=== PATIENT | female | born 1935 | race Two or more races ===

== ENCOUNTER 2018-12-29 17:18 | Inpatient (IN) | payer MEDICARE, BC ==
[2018-12-29] MEDS ORDERED: ASPIRIN 81 MG TABLET, CHEWABLE PO ONE (17:51)
--- NOTE | 2018-12-29 18:01 | ER Document Report ---
ED Medical Screen (RME) - General Chief Complaint: Chest Pressure Stated Complaint: CHEST PAIN Time Seen by Provider: 12/29/18 17:51 Notes: Patient is an 83-year-old female presents to the emergency department for generalized chest pressure. States she has had this chest pressure intermittently for the last couple of weeks. States last 24 hours she is also noticed eyes intermittent respiratory distress. Patient is denying any history of atrial fibrillation or irregular heartbeat. Patient's denying history of hypertension, hyperlipidemia, use of blood thinners. GENERAL: Alert, interacts well. No acute distress. LUNGS: Clear to auscultation bilaterally, no wheezes, rales, or rhonchi. No respiratory distress. I have greeted and performed a rapid initial assessment of this patient. A comprehensive ED assessment and evaluation of the patient, analysis of test results and completion of the medical decision making process will be conducted by additional ED providers. This medical record was dictated with voice recognizing software. There may be grammatical, syntax errors that are unintended. TRAVEL OUTSIDE OF THE [place] IN LAST 30 DAYS: No - Related Data Allergies/Adverse Reactions: No Known Allergies Allergy (Unverified 12/29/18 17:19) Physical Exam - Vital signs Vitals: Temp Pulse Resp BP Pulse Ox 98 F 110 H 22 H 168/107 H 96 12/29/18 17:32 12/29/18 17:32 12/29/18 17:32 12/29/18 17:32 12/29/18 17:32 Course - Vital Signs Vital signs: Temp Pulse Resp BP Pulse Ox 98 F 110 H 22 H 168/107 H 96 12/29/18 17:32 12/29/18 17:32 12/29/18 17:32 12/29/18 17:32 12/29/18 17:32
[2018-12-29 18:22] LABS: ABSOLUTE EOSINOPHILS # (AUTO) 0.2 10^3/uL (0.0-0.6); ABSOLUTE LYMPHOCYTES (AUTO) 0.7 10^3/uL (0.5-4.7); ABSOLUTE MONOCYTES (AUTO) 0.4 10^3/uL (0.1-1.4); ABSOLUTE NEUT (AUTO) 3.6 10^3/uL (1.7-8.2); BASOPHILS % (AUTO) 0.8 % (0-2); EOSINOPHILS % (AUTO) 3.2 % (0-6); HEMOGLOBIN 12.2 g/dL (12.0-15.5); LYMPHOCYTES % (AUTO) 14.8 % (13-45); MEAN CORPUSCULAR HEMOGLOBIN 26.9 pg (27.0-33.4); MEAN CORPUSCULAR VOLUME 84 fl (80-97); MONOCYTES % (AUTO) 8.2 % (3-13); PLATELET COUNT 232 10^3/uL (150-450); RED BLOOD COUNT 4.52 10^6/uL (3.72-5.28); RED CELL DISTRIBUTION WIDTH 14.7 % (11.5-14.0); TOTAL CELLS COUNTED % (AUTO) 100 %
--- NOTE | 2018-12-29 18:30 | RADIOLOGY REPORT (SQ) ---
EXAM DESCRIPTION: CHEST SINGLE VIEW COMPLETED DATE/TIME: 12/29/2018 6:19 pm REASON FOR STUDY: CP COMPARISON: None. NUMBER OF VIEWS: One view. TECHNIQUE: Single frontal radiographic view of the chest acquired. LIMITATIONS: None. FINDINGS: LUNGS AND PLEURA: No opacities, masses or pneumothorax. No pleural effusion. MEDIASTINUM AND HILAR STRUCTURES: No masses. Contour normal. HEART AND VASCULAR STRUCTURES: Heart enlarged without failure. Normal vasculature. BONES: No acute findings. HARDWARE: None in the chest. OTHER: Large hiatal hernia. IMPRESSION: HEART ENLARGED WITHOUT FAILURE. NO OTHER SIGNIFICANT RADIOGRAPHIC FINDING IN THE CHEST. TECHNICAL DOCUMENTATION: JOB ID: [id number] [employer]- All Rights Reserved Reading location - IP/workstation name: [email or web address]
[2018-12-29 18:44] LABS: ALANINE AMINOTRANSFERASE 30 U/L (9-52); ALBUMIN 4.2 g/dL (3.5-5.0); ALKALINE PHOSPHATASE 72 U/L (38-126); ANION GAP 11 (5-19); ASPARTATE AMINO TRANSFERASE 41 U/L (14-36); BILIRUBIN,DIRECT 0.3 mg/dL (0.0-0.4); BILIRUBIN,TOTAL 0.5 mg/dL (0.2-1.3); BLOOD UREA NITROGEN 21 mg/dL (7-20); CALCIUM 9.5 mg/dL (8.4-10.2); CARBON DIOXIDE 26 mmol/L (22-30); CHLORIDE 102 mmol/L (98-107); CREATINE KINASE 75 U/L (30-135); GLUCOSE 93 mg/dL (75-110); POTASSIUM 4.3 mmol/L (3.6-5.0); SODIUM 139.3 mmol/L (137-145); TOTAL PROTEIN 7.3 g/dL (6.3-8.2)
[2018-12-29 18:55] LABS: CREATINE KINASE MB 1.91 ng/mL (<4.55); TROPONIN I < 0.012 ng/mL
[2018-12-29] MEDS ORDERED: DILTIAZEM HCL INJ 25 MG/5 ML VIAL IV ONE (19:07)
--- NOTE | 2018-12-29 19:07 | ER Document Report ---
ED General - General Chief Complaint: Chest Pressure Stated Complaint: CHEST PAIN Time Seen by Provider: 12/29/18 17:51 Mode of Arrival: Ambulatory Information source: Patient Notes: This is a 83-year-old female with no significant medical problems who presents to the emergency room with him to chest pressure for the last day. Currently, she is pain-free. TRAVEL OUTSIDE OF THE [place] IN LAST 30 DAYS: No - HPI Onset: This morning Onset/Duration: Intermittent Quality of pain: Other Severity: Mild Pain Level: 1 - Tightness Associated symptoms: Chest pain. denies: Fever, Headache, Shortness of breath Exacerbated by: Denies Relieved by: Denies Similar symptoms previously: No Recently seen / treated by doctor: No - Related Data Allergies/Adverse Reactions: No Known Allergies Allergy (Unverified 12/29/18 17:19) Past Medical History - General Information source: Patient - Social History Smoking Status: Never Smoker Cigarette use (# per day): No Chew tobacco use (# tins/day): No Frequency of alcohol use: None Drug Abuse: None Lives with: Family Family History: None Patient has suicidal ideation: No Patient has homicidal ideation: No - Medical History Medical History: Negative Renal/ Medical History: Denies: Hx Peritoneal Dialysis Past Surgical History: Reports: Hx Orthopedic Surgery Review of Systems - Review of Systems Constitutional: denies: Chills, Fever EENT: No symptoms reported Cardiovascular: See HPI Respiratory: No symptoms reported Gastrointestinal: No symptoms reported Genitourinary: No symptoms reported Female Genitourinary: No symptoms reported Musculoskeletal: No symptoms reported Skin: No symptoms reported Hematologic/Lymphatic: No symptoms reported Neurological/Psychological: No symptoms reported Physical Exam - Vital signs Vitals: Temp Pulse Resp BP Pulse Ox 98 F 110 H 22 H 168/107 H 96 12/29/18 17:32 12/29/18 17:32 12/29/18 17:32 12/29/18 17:32 12/29/18 17:32 Notes: Physical exam: GENERAL: Patient is alert and oriented x3, no acute distress. Blood pressure is 170/99, pulse 107, respiratory rate 22, O2 sat 100% HEAD: Atraumatic, normocephalic. EYES: Pupils equal round and reactive to light, extraocular movements intact, sclera anicteric, conjunctiva are normal. ENT: TMs normal, nares patent, oropharynx clear without exudates. Moist mucous membranes. NECK: Normal range of motion, supple without obvious mass or JVD. LUNGS: Breath sounds clear to auscultation bilaterally and equal. No wheezes rales or rhonchi. HEART: Irregularly irregular without murmurs, rubs or gallops. ABDOMEN: Soft, normoactive bowel sounds. No tenderness to palpation. No guarding, no rebound. No masses appreciated. EXTREMITIES: Normal range of motion, no pitting or edema. No clubbing or cyanosis. NEUROLOGICAL: Cranial nerves II through XII grossly intact. Normal speech, moving all extremities. PSYCH: Normal mood, normal affect. SKIN: Warm, Dry, normal turgor, no rashes or lesions noted. Course - Vital Signs Vital signs: Temp Pulse Resp BP Pulse Ox 97.8 F 90 18 150/88 H 97 12/30/18 00:09 12/30/18 02:00 12/30/18 00:09 12/30/18 00:09 12/30/18 00:09 - Laboratory Result Diagrams: 12/29/18 18:10 12/29/18 18:10 Laboratory results interpreted by me: 12/29/18 12/29/18 18:10 18:10 MCH 26.9 L RDW 14.7 H BUN 21 H Est GFR ( Amer) 53 L Est GFR (Non-Af Amer) 44 L AST 41 H - Diagnostic Test Radiology reviewed: Image reviewed, Reports reviewed - Cardiomegaly without failure - EKG Interpretation by Ks Rhythm: A.Fib - EKG shows atrial fibrillation with a ventricular rate of 108, nonspecific ST changes per Discharge - Discharge Clinical Impression: New onset atrial fibrillation with a rap, Chest pain Condition: Stable Disposition: ADMITTED INPATIENT Admitting Provider: Liam (Hospitalist) Unit Admitted: Telemetry
[2018-12-29] MEDS ORDERED: ENOXAPARIN SODIUM INJ 100 MG/1 ML DISP.SYRIN SUBCUT ONE (20:26)
[2018-12-29] MEDS ORDERED: DILTIAZEM HCL 60 MG TABLET PO ONE (20:26)
[2018-12-29] MEDS ORDERED: MAG HYDROX/AL HYDROX/SIMETH SUSP 30 ML UDCUP PO PRN (21:29)
[2018-12-29] MEDS ORDERED: MAGNESIUM HYDROXIDE SUSP 30 ML UDCUP PO PRN (21:29)
[2018-12-29 21:37] LABS: FREE T3 4.01 pg/mL (2.77-5.27); FREE T4 (FREE THYROXINE) 1.32 ng/dL (0.78-2.19)
[2018-12-29 21:51] LABS: THYROID STIMULATING HORMONE 2.42 uIU/mL (0.47-4.68)
--- NOTE | 2018-12-29 22:21 | EKG REPORT ---
SEVERITY:- ABNORMAL ECG - ATRIAL FIBRILLATION, V-RATE 83-135 LVH WITH SECONDARY REPOLARIZATION ABNORMALITY BORDERLINE PROLONGED QT INTERVAL : Confirmed by: Saad Haas MD 29-Dec-2018 22:20:15
[2018-12-29 22:59] LABS: CREATINE KINASE MB 1.62 ng/mL (<4.55)
[2018-12-29 23:03] LABS: TROPONIN I 0.015 ng/mL
[2018-12-30] MEDS: ACETAMINOPHEN 325 MG TABLET PO PRN ×4 (00:56→22:37)
[2018-12-30 04:13] LABS: ABSOLUTE EOSINOPHILS # (AUTO) 0.2 10^3/uL (0.0-0.6); ABSOLUTE LYMPHOCYTES (AUTO) 1.1 10^3/uL (0.5-4.7); ABSOLUTE MONOCYTES (AUTO) 0.4 10^3/uL (0.1-1.4); ABSOLUTE NEUT (AUTO) 3.8 10^3/uL (1.7-8.2); BASOPHILS % (AUTO) 0.7 % (0-2); EOSINOPHILS % (AUTO) 3.7 % (0-6); HEMATOCRIT 38.4 % (36.0-47.0); HEMOGLOBIN 12.4 g/dL (12.0-15.5); LYMPHOCYTES % (AUTO) 19.2 % (13-45); MEAN CORPUSCULAR HGB CONC 32.2 g/dL (32.0-36.0); MEAN CORPUSCULAR VOLUME 84 fl (80-97); MONOCYTES % (AUTO) 8.1 % (3-13); PLATELET COUNT 218 10^3/uL (150-450); RED BLOOD COUNT 4.58 10^6/uL (3.72-5.28); RED CELL DISTRIBUTION WIDTH 14.8 % (11.5-14.0); SEGMENTED NEUTROPHILS % (AUTO) 68.3 % (42-78); TOTAL CELLS COUNTED % (AUTO) 100 %; WHITE BLOOD COUNT 5.6 10^3/uL (4.0-10.5)
[2018-12-30 04:31] LABS: ANION GAP 10 (5-19); BLOOD UREA NITROGEN 18 mg/dL (7-20); CALCIUM 9.4 mg/dL (8.4-10.2); CARBON DIOXIDE 26 mmol/L (22-30); CHLORIDE 105 mmol/L (98-107); GLUCOSE 87 mg/dL (75-110); POTASSIUM 3.9 mmol/L (3.6-5.0); SODIUM 140.6 mmol/L (137-145)
[2018-12-30 04:42] LABS: CREATINE KINASE MB 1.79 ng/mL (<4.55); TROPONIN I 0.015 ng/mL
--- NOTE | 2018-12-30 06:02 | PDOC H&P ---
History of Present Illness Admission Date/PCP: 12/29/18 21:29 SHASTA METCALF MD Patient complains of: Palpitations History of Present Illness: FRANCIA BECK is a 83 year old female without significant past medical history who presents with 2 weeks of palpitations developing chest tightness over the last 8 hours prompting her to seek evaluation in the emergency room. She is found to be in A. fib with RVR, started on Cardizem, Lovenox and referred to the hospitalist for admission. Patient denies previous episode, new antibiotics, excessive alcohol, caffeine, [id number] medications. She otherwise feels well denying heat or cold intolerance or significant weight loss. Past Medical History Medical History: None Past Surgical History Past Surgical History: Reports: Orthopedic Surgery Social History Information Source: Patient, Emergency Med Personnel Lives with: Family Smoking Status: Never Smoker Frequency of Alcohol Use: None Hx Recreational Drug Use: No Drugs: None - Advance Directive Resuscitation Status: Full Code Family History Family History: Hypertension Parental Family History Reviewed: Yes Children Family History Reviewed: Yes Sibling(s) Family History Reviewed.: Yes Medication/Allergy Allergies/Adverse Reactions: No Known Allergies Allergy (Unverified 12/29/18 17:19) Review of Systems Constitutional: ABSENT: chills, fever(s), headache(s), weight gain, weight loss Eyes: ABSENT: visual disturbances Ears: ABSENT: hearing changes Cardiovascular: ABSENT: chest pain, dyspnea on exertion, edema, orthropnea, palpitations Respiratory: ABSENT: cough, hemoptysis Gastrointestinal: ABSENT: abdominal pain, constipation, diarrhea, hematemesis, hematochezia, nausea, vomiting Genitourinary: ABSENT: dysuria, hematuria Musculoskeletal: ABSENT: joint swelling Integumentary: ABSENT: rash, wounds Neurological: ABSENT: abnormal gait, abnormal speech, confusion, dizziness, focal weakness, syncope Psychiatric: ABSENT: anxiety, depression, homidical ideation, suicidal ideation Endocrine: ABSENT: cold intolerance, heat intolerance, polydipsia, polyuria Hematologic/Lymphatic: ABSENT: easy bleeding, easy bruising Physical Exam Vital Signs: Temp Pulse Resp BP Pulse Ox 97.4 F 54 L 17 143/85 H 99 12/30/18 04:00 12/30/18 04:00 12/30/18 04:00 12/30/18 04:00 12/30/18 04:00 Intake & Output 12/28/18 12/29/18 12/30/18 11:59 11:59 11:59 Weight 63.1 kg General appearance: PRESENT: no acute distress, well-developed, well-nourished Head exam: PRESENT: atraumatic, normocephalic Eye exam: PRESENT: conjunctiva pink, EOMI, PERRLA. ABSENT: scleral icterus Ear exam: PRESENT: normal external ear exam Mouth exam: PRESENT: moist, tongue midline Neck exam: ABSENT: carotid bruit, JVD, lymphadenopathy, thyromegaly Respiratory exam: PRESENT: clear to auscultation edel. ABSENT: rales, rhonchi, wheezes Cardiovascular exam: PRESENT: irregular rhythm, tachycardia. ABSENT: diastolic murmur, rubs, systolic murmur Pulses: PRESENT: normal dorsalis pedis pul Vascular exam: PRESENT: normal capillary refill GI/Abdominal exam: PRESENT: normal bowel sounds, soft. ABSENT: distended, gu arding, mass, organolmegaly, rebound, tenderness Rectal exam: PRESENT: deferred Extremities exam: PRESENT: full ROM. ABSENT: calf tenderness, clubbing, pedal edema Neurological exam: PRESENT: alert, awake, oriented to person, oriented to place, oriented to time, oriented to situation, CN II-XII grossly intact. ABSENT: mot or sensory deficit Psychiatric exam: PRESENT: appropriate affect, normal mood. ABSENT: homicidal ideation, suicidal ideation Skin exam: PRESENT: dry, intact, warm. ABSENT: cyanosis, rash Results Laboratory Results: 12/30/18 03:50 12/30/18 03:50 12/29/18 12/29/18 12/29/18 18:10 18:10 18:10 WBC 5.0 RBC 4.52 Hgb 12.2 Hct 38.0 MCV 84 MCH 26.9 L MCHC 32.0 RDW 14.7 H Plt Count 232 Seg Neutrophils % 73.0 Lymphocytes % 14.8 Monocytes % 8.2 Eosinophils % 3.2 Basophils % 0.8 Absolute Neutrophils 3.6 Absolute Lymphocytes 0.7 Absolute Monocytes 0.4 Absolute Eosinophils 0.2 Absolute Basophils 0.0 Sodium 139.3 Potassium 4.3 Chloride 102 Carbon Dioxide 26 Anion Gap 11 BUN 21 H Creatinine 1.17 Est GFR ( Amer) 53 L Est GFR (Non-Af Amer) 44 L Glucose 93 Calcium 9.5 Total Bilirubin 0.5 AST 41 H ALT 30 Alkaline Phosphatase 72 Total Protein 7.3 Albumin 4.2 TSH 2.42 Free T4 1.32 Free T3 pg/mL 4.01 12/30/18 12/30/18 03:50 03:50 WBC 5.6 RBC 4.58 Hgb 12.4 Hct 38.4 MCV 84 MCH 27.0 MCHC 32.2 RDW 14.8 H Plt Count 218 Seg Neutrophils % 68.3 Lymphocytes % 19.2 Monocytes % 8.1 Eosinophils % 3.7 Basophils % 0.7 Absolute Neutrophils 3.8 Absolute Lymphocytes 1.1 Absolute Monocytes 0.4 Absolute Eosinophils 0.2 Absolute Basophils 0.0 Sodium 140.6 Potassium 3.9 Chloride 105 Carbon Dioxide 26 Anion Gap 10 BUN 18 Creatinine 0.99 Est GFR ( Amer) > 60 Est GFR (Non-Af Amer) 53 L Glucose 87 Calcium 9.4 Total Bilirubin AST ALT Alkaline Phosphatase Total Protein Albumin TSH Free T4 Free T3 pg/mL 12/29/18 12/29/18 12/29/18 18:10 18:10 22:00 Creatine Kinase 75 CK-MB (CK-2) 1.91 1.62 Troponin I < 0.012 0.015 12/29/18 12/30/18 12/30/18 22:00 03:50 03:50 Creatine Kinase 61 61 CK-MB (CK-2) 1.79 Troponin I 0.015 Impressions: Chest X-Ray 12/29/18 17:52 IMPRESSION: HEART ENLARGED WITHOUT FAILURE. NO OTHER SIGNIFICANT RADIOGRAPHIC FINDING IN THE CHEST. Assessment and Plan - Diagnosis (1) Atrial fibrillation with RVR Is this a current diagnosis for this admission?: Yes Plan: No apparent underlying cause, continue Cardizem, full dose Lovenox, follow-up 2D echo (2) Chest pain Is this a current diagnosis for this admission?: Yes Plan: Likely secondary to #1,, symptomatic management and consider stress test. - Time Time Spent with patient: 35 or more minutes - Inpatient Certification Medical Necessity: Need Close Monitoring Due to Risk of Patient Decompensation
[2018-12-30] MEDS: DILTIAZEM HCL 60 MG TABLET PO SCH ×2 (06:15→15:05)
[2018-12-30] MEDS: ASPIRIN 81 MG TABLET, CHEWABLE PO SCH (09:15)
[2018-12-30] MEDS ORDERED: ENOXAPARIN SODIUM INJ 80 MG/0.8 ML DISP.SYRIN SUBCUT SCH (10:00)
[2018-12-30 10:40] LABS: CREATINE KINASE MB 1.77 ng/mL (<4.55)
[2018-12-30 10:48] LABS: TROPONIN I < 0.012 ng/mL
[2018-12-30] MEDS ORDERED: TIZANIDINE HCL 4 MG TABLET PO ONE (12:30)
--- NOTE | 2018-12-30 13:29 | XCELERA REPORT ---
[address] [address] Transthoracic Echocardiogram Report Name: FRANCIA BECK Age: 83 yrs Gender: Female : 1935 Patient Status: Inpatient Patient Location: [facility] Study Date: 12/30/2018 11:02 AM Height: 66 in Weight: 134 lb BSA: 1.7 m2 Procedure: A two-dimensional transthoracic echocardiogram with color flow and Doppler was performed. The study was technically limited with all images being suboptimal in quality. Reason For Study: new afib History: ATRIAL FIBRILLATION. Ordering Physician: SHIVA ARANDA Performed By: Isaiah Hooker Interpretation Summary The left ventricle is normal in size. Cannot exclude mild global hypokinesis.LVEF is mildly reduced at 50%. LV EF is 50% LV diastolic function could not be adequately assessed due to atrial fibrilation. There is no thrombus. Moost likely no ASD ,VSD , or PFO. The right ventricle is grossly normal size. The right atrium is mild to moderately dilated. Left Atrium is moderately to severly dilated. There is mild mitral annular calcification. There is no evidence of mitral valve prolapse. There is no vegetation seen on the mitral valve. There is a moderate to severe amount of mitral regurgitation There is no aortic valvular vegetation. There is aortic sclerosis without aortic stenosis. There is no LVOT obstruction. There is a trace amount of aortic regurgitation There is no tricuspid stenosis. No significant pulmonary hypertension.RVSP is 27 to 32 mm of Hg , with RA mean of 5 to 10.Suspect there is underestimation OF Tricuspid jet velocity , and hence RVSP. There is a mild to moderate amount of tricuspid regurgitation The pulmonic valve is not well visualized. The aortic root is not well visualized but is probably normal size. The inferior vena cava appeared normal and decreased > 50% with respiration (RAP 5-10 mmHg) There is no pericardial effusion. MMode/2D Measurements & Calculations RVDd: 2.1 cm LVIDd: 4.5 cm FS: 22.3 % Ao root diam: 3.3 cm IVSd: 1.1 cm LVIDs: 3.5 cm EDV(Teich): 92.5 ml Ao root area: 8.3 cm2 LVPWd: 0.95 cm ESV(Teich): 50.8 ml LA dimension: 3.6 cm EF(Teich): 45.1 % LVOT diam: 2.1 cm LVOT area: 3.6 cm2 Doppler Measurements & Calculations MV E max al: MV P1/2t max al: Ao V2 max: LV V1 max P.3 cm/sec 165.2 cm/sec 118.7 cm/sec 2.5 mmHg MV A max al: MV P1/2t: 66.4 msec Ao max P.6 mmHgLV V1 max: 39.8 cm/sec MVA(P1/2t): 3.3 cm2 MICHAEL(V,D): 2.4 cm2 79.1 cm/sec MV E/A: 3.9 MV dec slope: 729.1 cm/sec2 MV dec time: 0.19 sec MR max al: PA V2 max: PI end-d al: TR max al: 565.8 cm/sec 74.7 cm/sec 107.2 cm/sec 232.1 cm/sec MR max PG: PA max P.2 mmHg TR max P.1 mmHg 21.6 mmHg MV P1/2t-pr_phl: 66.4 msec Left Ventricle The left ventricle is normal in size. There is normal left ventricular wall thickness. LV EF is 50%. Cannot exclude mild global hypokinesis.LVEF is mildly reduced at 50%. LV diastolic function could not be adequately assessed due to atrial fibrilation. There is no thrombus. Moost likely no ASD ,VSD , or PFO. Right Ventricle The right ventricle is grossly normal size. The right ventricle is not well visualized secondary to technical limitations. Atria The right atrium is mild to moderately dilated. Left Atrium is moderately to severly dilated. Mitral Valve There is mild mitral annular calcification. There is mild mitral leaflet calcification. There is no evidence of mitral valve prolapse. There is no vegetation seen on the mitral valve. There is no mitral valve stenosis. There is a moderate to severe amount of mitral regurgitation. Aortic Valve There is no aortic valvular vegetation. There is aortic sclerosis without aortic stenosis. There is no LVOT obstruction. There is a trace amount of aortic regurgitation. Tricuspid Valve There is no tricuspid stenosis. No significant pulmonary hypertension.RVSP is 27 to 32 mm of Hg , with RA mean of 5 to 10.Suspect there is underestimation OF Tricuspid jet velocity , and hence RVSP. There is a mild to moderate amount of tricuspid regurgitation. Pulmonic Valve The pulmonic valve is not well visualized. Great Vessels The aortic root is not well visualized but is probably normal size. The inferior vena cava appeared normal and decreased > 50% with respiration (RAP 5-10 mmHg). Effusions There is no pericardial effusion. : SHIVA ARANDA > Janelle Gunderson
--- NOTE | 2018-12-30 16:14 | PDOC PROGRESS REPORT ---
Subjective Progress Note for:: 12/30/18 Subjective:: FRANCIA BECK is a 83 year old female without significant past medical history who presents with 2 weeks of palpitations developing chest tightness over the last 8 hours prompting her to seek evaluation in the emergency room. She is found to be in A. fib with RVR, started on Cardizem, Lovenox and referred to the hospitalist for admission. Patient denies previous episode, new antibiotics, excessive alcohol, caffeine, [id number] medications. She otherwise feels well denying heat or cold intolerance or significant weight loss. Reason For Visit: NEW AFIB, CHEST PAIN Physical Exam Vital Signs: Temp Pulse Resp BP Pulse Ox 97.7 F 71 17 159/86 H 96 12/30/18 12:23 12/30/18 14:00 12/30/18 12:23 12/30/18 12:23 12/30/18 12:23 Intake & Output 12/29/18 12/30/18 12/31/18 06:59 06:59 06:59 Output Total 800 Balance -800 Weight 63.1 kg General appearance: PRESENT: no acute distress, well-developed, well-nourished Head exam: PRESENT: atraumatic, normocephalic Eye exam: PRESENT: conjunctiva pink, EOMI, PERRLA. ABSENT: scleral icterus Ear exam: PRESENT: normal external ear exam Mouth exam: PRESENT: moist, tongue midline Neck exam: ABSENT: carotid bruit, JVD, lymphadenopathy, thyromegaly Respiratory exam: PRESENT: clear to auscultation edel. ABSENT: rales, rhonchi, wheezes Cardiovascular exam: PRESENT: RRR. ABSENT: diastolic murmur, rubs, systolic murmur Pulses: PRESENT: normal dorsalis pedis pul Vascular exam: PRESENT: normal capillary refill GI/Abdominal exam: PRESENT: normal bowel sounds, soft. ABSENT: distended, guarding, mass, organolmegaly, rebound, tenderness Rectal exam: PRESENT: deferred Extremities exam: PRESENT: full ROM. ABSENT: calf tenderness, clubbing, pedal edema Neurological exam: PRESENT: alert, awake, oriented to person, oriented to place, oriented to time, oriented to situation, CN II-XII grossly intact. ABSENT: motor sensory deficit Psychiatric exam: PRESENT: appropriate affect, normal mood. ABSENT: homicidal ideation, suicidal ideation Skin exam: PRESENT: dry, intact, warm. ABSENT: cyanosis, rash Results Laboratory Results: 12/30/18 03:50 12/30/18 03:50 12/29/18 12/29/18 12/29/18 18:10 18:10 18:10 WBC 5.0 RBC 4.52 Hgb 12.2 Hct 38.0 MCV 84 MCH 26.9 L MCHC 32.0 RDW 14.7 H Plt Count 232 Seg Neutrophils % 73.0 Lymphocytes % 14.8 Monocytes % 8.2 Eosinophils % 3.2 Basophils % 0.8 Absolute Neutrophils 3.6 Absolute Lymphocytes 0.7 Absolute Monocytes 0.4 Absolute Eosinophils 0.2 Absolute Basophils 0.0 Sodium 139.3 Potassium 4.3 Chloride 102 Carbon Dioxide 26 Anion Gap 11 BUN 21 H Creatinine 1.17 Est GFR ( Amer) 53 L Est GFR (Non-Af Amer) 44 L Glucose 93 Calcium 9.5 Total Bilirubin 0.5 AST 41 H ALT 30 Alkaline Phosphatase 72 Total Protein 7.3 Albumin 4.2 TSH 2.42 Free T4 1.32 Free T3 pg/mL 4.01 12/30/18 12/30/18 03:50 03:50 WBC 5.6 RBC 4.58 Hgb 12.4 Hct 38.4 MCV 84 MCH 27.0 MCHC 32.2 RDW 14.8 H Plt Count 218 Seg Neutrophils % 68.3 Lymphocytes % 19.2 Monocytes % 8.1 Eosinophils % 3.7 Basophils % 0.7 Absolute Neutrophils 3.8 Absolute Lymphocytes 1.1 Absolute Monocytes 0.4 Absolute Eosinophils 0.2 Absolute Basophils 0.0 Sodium 140.6 Potassium 3.9 Chloride 105 Carbon Dioxide 26 Anion Gap 10 BUN 18 Creatinine 0.99 Est GFR ( Amer) > 60 Est GFR (Non-Af Amer) 53 L Glucose 87 Calcium 9.4 Total Bilirubin AST ALT Alkaline Phosphatase Total Protein Albumin TSH Free T4 Free T3 pg/mL 12/29/18 12/29/18 12/29/18 18:10 18:10 22:00 Creatine Kinase 75 CK-MB (CK-2) 1.91 1.62 Troponin I < 0.012 0.015 12/29/18 12/30/18 12/30/18 22:00 03:50 03:50 Creatine Kinase 61 61 CK-MB (CK-2) 1.79 Troponin I 0.015 12/30/18 12/30/18 09:57 09:57 Creatine Kinase 59 CK-MB (CK-2) 1.77 Troponin I < 0.012 Impressions: Chest X-Ray 12/29/18 17:52 IMPRESSION: HEART ENLARGED WITHOUT FAILURE. NO OTHER SIGNIFICANT RADIOGRAPHIC FINDING IN THE CHEST. Assessment and Plan - Diagnosis (1) Atrial fibrillation with RVR Is this a current diagnosis for this admission?: Yes Plan: New onset. Rate controlled. CHADs Score 6. Based on gender, age and htn. Initially started on Cardizem p.o. then switched to beta-blockers as per cardiology recommendations. Discharged on metoprolol and Eliquis. Follow-up with Dr. Gunderson as outpatient possible stress test. Had a lengthy discussion about pros and cons of chronic anticoagulation. Pref ers to be started on started on NOACs rather than Coumadin. Pending 2D echo. (2) Chest pain Is this a current diagnosis for this admission?: Yes Plan: Resolved. Likely triggered by A. fib RVR. Troponins 0.0130.012. Continue aspirin, beta-blockers, ARB. A1c and lipid panel WNL. (3) Hypertension Is this a current diagnosis for this admission?: No Plan: Euvolemic. Not controlled. Continue beta-blockers. Add lisinopril. Follow-up with PCP Dr. Gunedrson for dose adjustment.
[2018-12-30] MEDS: APIXABAN 5 MG TABLET PO SCH (17:34)
[2018-12-30] MEDS: HYDRALAZINE HCL INJ/PF 20 MG/1 ML SDV IV PRN (18:12)
[2018-12-30] MEDS: METOPROLOL TARTRATE 50 MG TABLET PO SCH (21:09)
[2018-12-30] MEDS ORDERED: LOSARTAN POTASSIUM 25 MG TABLET PO SCH (22:00)
[2018-12-31 04:23] LABS: ABSOLUTE EOSINOPHILS # (AUTO) 0.2 10^3/uL (0.0-0.6); ABSOLUTE LYMPHOCYTES (AUTO) 0.6 10^3/uL (0.5-4.7); ABSOLUTE MONOCYTES (AUTO) 0.4 10^3/uL (0.1-1.4); ABSOLUTE NEUT (AUTO) 3.2 10^3/uL (1.7-8.2); BASOPHILS % (AUTO) 0.8 % (0-2); EOSINOPHILS % (AUTO) 3.6 % (0-6); HEMATOCRIT 40.5 % (36.0-47.0); HEMOGLOBIN 13.1 g/dL (12.0-15.5); LYMPHOCYTES % (AUTO) 14.1 % (13-45); MEAN CORPUSCULAR HEMOGLOBIN 27.2 pg (27.0-33.4); MEAN CORPUSCULAR HGB CONC 32.4 g/dL (32.0-36.0); MEAN CORPUSCULAR VOLUME 84 fl (80-97); MONOCYTES % (AUTO) 8.8 % (3-13); PLATELET COUNT 229 10^3/uL (150-450); RED BLOOD COUNT 4.82 10^6/uL (3.72-5.28); RED CELL DISTRIBUTION WIDTH 14.8 % (11.5-14.0); SEGMENTED NEUTROPHILS % (AUTO) 72.7 % (42-78); TOTAL CELLS COUNTED % (AUTO) 100 %; WHITE BLOOD COUNT 4.4 10^3/uL (4.0-10.5)
[2018-12-31 04:34] LABS: ANION GAP 11 (5-19); BLOOD UREA NITROGEN 16 mg/dL (7-20); CALCIUM 9.9 mg/dL (8.4-10.2); CARBON DIOXIDE 25 mmol/L (22-30); CHLORIDE 103 mmol/L (98-107); CHOLESTEROL 158.91 mg/dL (0-200); GLUCOSE 93 mg/dL (75-110); SODIUM 139.2 mmol/L (137-145); TRIGLYCERIDES 105 mg/dL (<150)
[2018-12-31 04:45] LABS: DIRECT LDL 85 mg/dL (<100)
[2018-12-31] MEDS: HYDRALAZINE HCL INJ/PF 20 MG/1 ML SDV IV PRN (05:41)
[2018-12-31] MEDS: APIXABAN 5 MG TABLET PO SCH (09:24)
[2018-12-31] MEDS: METOPROLOL TARTRATE 50 MG TABLET PO SCH (09:24)
[2018-12-31] MEDS: ASPIRIN 81 MG TABLET, CHEWABLE PO SCH (09:26)
[2018-12-31] MEDS: ACETAMINOPHEN 325 MG TABLET PO PRN (09:31)
[2018-12-31] MEDS ORDERED: LOSARTAN POTASSIUM 25 MG TABLET PO SCH (10:00)
[2018-12-31] MEDS ORDERED: TIZANIDINE HCL 4 MG TABLET PO PRN (12:44)
[2018-12-31 15:20] VITALS: BP 134/64
--- NOTE | 2018-12-31 17:08 | EKG REPORT ---
SEVERITY:- ABNORMAL ECG - ATRIAL FIBRILLATION, V-RATE 58-91 ATRIAL BEAT WITH ABERRENCY LVH WITH SECONDARY REPOLARIZATION ABNORMALITY : Confirmed by: Saad Haas MD 31-Dec-2018 17:06:57
--- NOTE | 2019-01-02 14:59 | PDOC DISCHARGE SUMMARY ---
General - Admit/Disc Date/PCP Admission Date/Primary Care Provider: 12/29/18 21:29 SHASTA METCALF MD Discharge Date: 12/31/18 - Discharge Diagnosis (1) Atrial fibrillation with RVR Is this a current diagnosis for this admission?: Yes (2) Chest pain Is this a current diagnosis for this admission?: Yes (3) Hypertension Is this a current diagnosis for this admission?: No - Additional Information Resuscitation Status: Full Code Discharge Diet: Cardiac Discharge Activity: Activity As Tolerated Prescriptions: Apixaban [Eliquis 5 mg Tablet] 5 mg PO BID 30 Days #60 tablet Losartan Potassium [Cozaar 25 mg Tablet] 25 mg PO BID 30 Days #60 tablet Metoprolol Tartrate [Lopressor 50 mg Tablet] 50 mg PO Q12 30 Days #30 tablet Tizanidine HCl 2 mg PO Q8 3 Days #9 tablet Home Medications: Acetaminophen [Tylenol Arthritis] 650 mg PO DAILY 12/30/18 Aspirin [Adult Low Dose Aspirin EC] 81 mg PO DAILY 12/30/18 Apixaban [Eliquis 5 mg Tablet] 5 mg PO BID 30 Days #60 tablet 12/31/18 Losartan Potassium [Cozaar 25 mg Tablet] 25 mg PO BID 30 Days #60 tablet 12/31/18 Metoprolol Tartrate [Lopressor 50 mg Tablet] 50 mg PO Q12 30 Days #30 tablet 12/31/18 Tizanidine HCl 2 mg PO Q8 3 Days #9 tablet 12/31/18 History of Present Illness History of Present Illness: FRANCIA BECK is a 83 year old female without significant past medical history who presents with 2 weeks of palpitations developing chest tightness over the last 8 hours prompting her to seek evaluation in the emergency room. She is found to be in A. fib with RVR, started on Cardizem, Lovenox and referred to the hospitalist for admission. Patient denies previous episode, new antibiotics, excessive alcohol, caffeine, [id number] medications. She otherwise feels well denying heat or cold intolerance or significant weight loss. Hospital Course Hospital Course: (1) Atrial fibrillation with RVR New onset. Rate controlled. CHADs Score 6. Based on gender, age and htn. Initially started on Cardizem p.o. then switched to beta-blockers as per cardiology recommendations. Discharged on metoprolol and Eliquis. Follow-up with Dr. Gunderson as outpatient possible stress test. Had a lengthy discussion about pros and cons of chronic anticoagulation. Prefers to be started on started on NOACs rather than Coumadin. 12/31/2018. 2D echo LVEF 50%. Right atrial enlargement. (2) Chest pain Resolved. Likely triggered by A. fib RVR. Troponins 0.0130.012. Continue aspirin, beta-blockers, ARB. A1c and lipid panel WNL. (3) Hypertension Euvolemic. Controlled. Start on beta-blockers, ARB. Follow-up with PCP Dr. Gunderson for dose adjustment. Physical Exam Vital Signs: Temp Pulse Resp BP Pulse Ox 97.8 F 83 17 134/64 H 96 12/31/18 15:16 12/31/18 15:16 12/31/18 15:16 12/31/18 15:16 12/31/18 15:16 General appearance: PRESENT: no acute distress, well-developed, well-nourished Head exam: PRESENT: atraumatic, normocephalic Eye exam: PRESENT: conjunctiva pink, EOMI, PERRLA. ABSENT: scleral icterus Ear exam: PRESENT: normal external ear exam Mouth exam: PRESENT: moist, tongue midline Neck exam: ABSENT: carotid bruit, JVD, lymphadenopathy, thyromegaly Respiratory exam: PRESENT: clear to auscultation edel. ABSENT: rales, rhonchi, wheezes Cardiovascular exam: PRESENT: irregular rhythm. ABSENT: diastolic murmur, rubs, systolic murmur Pulses: PRESENT: normal dorsalis pedis pul Vascular exam: PRESENT: normal capillary refill GI/Abdominal exam: PRESENT: normal bowel sounds, soft. ABSENT: distended, guarding, mass, organolmegaly, rebound, tenderness Rectal exam: PRESENT: deferred Extremities exam: PRESENT: full ROM. ABSENT: calf tenderness, clubbing, pedal edema Neurological exam: PRESENT: alert, awake, oriented to person, oriented to place, oriented to time, oriented to situation, CN II-XII grossly intact. ABSENT: motor sensory deficit Psychiatric exam: PRESENT: appropriate affect, normal mood. ABSENT: homicidal ideation, suicidal ideation Skin exam: PRESENT: dry, intact, warm. ABSENT: cyanosis, rash Results Laboratory Results: 12/31/18 03:36 12/31/18 03:36 12/29/18 12/29/18 12/29/18 18:10 18:10 22:00 Creatine Kinase 75 CK-MB (CK-2) 1.91 1.62 Troponin I < 0.012 0.015 12/29/18 12/30/18 12/30/18 22:00 03:50 03:50 Creatine Kinase 61 61 CK-MB (CK-2) 1.79 Troponin I 0.015 12/30/18 12/30/18 09:57 09:57 Creatine Kinase 59 CK-MB (CK-2) 1.77 Troponin I < 0.012 Impressions: Chest X-Ray 12/29/18 17:52 IMPRESSION: HEART ENLARGED WITHOUT FAILURE. NO OTHER SIGNIFICANT RADIOGRAPHIC FINDING IN THE CHEST. Qualifiers - * PATIENT BEING DISCHARGED WITH ANY OF THE FOLLOWING DIAGNOSIS: No Acute Heart Failure - Is this a Heart Failure Patient?: Yes Documentation of LVEF assessment?: Yes - 50% LVEF < 40%?: No- if no continue to question #3 Reason(s) not discharged on ARNI: ACEI use within the prior 36 hours d) Discharged on evidence-based Beta samina(carvedilol, sustained release metoprolol succinate, or bisoprolol)?: Yes 3. Anticoagulant therapy for permanect/persistent/paraoxysmal Afib or Aflutter: Yes - NOAC
== END 2018-12-31 15:55 | disposition home or self-care (01) | DRG 310 ==
LOC: ER 17:18 → EH 21:29 → 5 23:45
PROVIDERS: ADMIT Internal Medicine; ATTEND Internal Medicine
DX: I48.91 Unspecified atrial fibrillation (principal); I10 Essential (primary) hypertension; Z79.02 Long term (current) use of antithrombotics/antiplatelets; Z79.899 Other long term (current) drug therapy
CPT/HCPCS: 36415; 71045; 80048; 80053; 80061; 82550; 82553; 83735; 84439; 84443; 84481; 84484; 85025; 93005; 93010; 93306; 96372; 96374; 99285; J0360; J1650; J3490

== ENCOUNTER 2019-03-18 17:01 | Emergency (ER) | payer MEDICARE, BC ==
[2019-03-18 17:22] VITALS: BP 181/96
--- NOTE | 2019-03-18 17:35 | ER Document Report ---
ED Medical Screen (RME) - General Chief Complaint: High Blood Pressure Stated Complaint: HIGH BLOOD PRESSURE Time Seen by Provider: 03/18/19 17:24 Primary Care Provider: SHASTA METCALF MD [Primary Care Provider] - Follow up as needed Mode of Arrival: Wheelchair Information source: Patient Notes: 83-year-old female presented to ED for complaint of elevated blood pressure all day. She states she is on metoprolol 50 mg losartan 50 mg and Eliquis as well as aspirin. She states that her blood pressure this morning was 215/112. She states is not come down to what it belongs. She states she was disoriented earlier but she feels more alert and oriented now. She states she has a history of high blood pressure and either a stroke or NE she is not sure which. She states she also has arthritis. She lives alone. She had a history of knee replacement and hysterectomy. He did review her medications which were listed above. He states that the doctor increased her losartan from 25 mg to 50 mg last week. I have greeted and performed a rapid initial assessment of this patient. A comprehensive ED assessment and evaluation of the patient, analysis of test results and completion of medical decision making process will be conducted by an additional ED providers. TRAVEL OUTSIDE OF THE [place] IN LAST 30 DAYS: No - Related Data Allergies/Adverse Reactions: No Known Allergies Allergy (Unverified 12/29/18 17:19) Past Medical History Renal/ Medical History: Denies: Hx Peritoneal Dialysis Past Surgical History: Reports: Hx Orthopedic Surgery Physical Exam - Vital signs Vitals: Temp Pulse Resp BP Pulse Ox 98.0 F 79 20 181/96 H 96 03/18/19 17:20 03/18/19 17:20 03/18/19 17:20 03/18/19 17:20 03/18/19 17:20 Course - Vital Signs Vital signs: Temp Pulse Resp BP Pulse Ox 98.0 F 79 20 181/96 H 96 03/18/19 17:20 03/18/19 17:20 03/18/19 17:20 03/18/19 17:20 03/18/19 17:20 Doctor's Discharge - Discharge Referrals: SHASTA METCALF MD [Primary Care Provider] - Follow up as needed
[2019-03-18 18:28] LABS: ABSOLUTE EOSINOPHILS # (AUTO) 0.1 10^3/uL (0.0-0.6); ABSOLUTE LYMPHOCYTES (AUTO) 1.3 10^3/uL (0.5-4.7); ABSOLUTE MONOCYTES (AUTO) 0.5 10^3/uL (0.1-1.4); ABSOLUTE NEUT (AUTO) 3.2 10^3/uL (1.7-8.2); BASOPHILS % (AUTO) 0.6 % (0-2); EOSINOPHILS % (AUTO) 2.6 % (0-6); HEMATOCRIT 45.1 % (36.0-47.0); HEMOGLOBIN 14.7 g/dL (12.0-15.5); LYMPHOCYTES % (AUTO) 25.5 % (13-45); MEAN CORPUSCULAR HEMOGLOBIN 27.7 pg (27.0-33.4); MEAN CORPUSCULAR HGB CONC 32.7 g/dL (32.0-36.0); MEAN CORPUSCULAR VOLUME 85 fl (80-97); MONOCYTES % (AUTO) 8.9 % (3-13); PLATELET COUNT 268 10^3/uL (150-450); RED BLOOD COUNT 5.31 10^6/uL (3.72-5.28); RED CELL DISTRIBUTION WIDTH 16.8 % (11.5-14.0); SEGMENTED NEUTROPHILS % (AUTO) 62.4 % (42-78); TOTAL CELLS COUNTED % (AUTO) 100 %; WHITE BLOOD COUNT 5.2 10^3/uL (4.0-10.5)
[2019-03-18 18:35] LABS: APPEARANCE,URINE CLEAR; BILIRUBIN,URINE NEGATIVE (NEGATIVE); COLOR,URINE YELLOW; GLUCOSE, URINE NEGATIVE (NEGATIVE); KETONES,URINE NEGATIVE (NEGATIVE); LEUKOCYTE ESTERASE,URINE TRACE (NEGATIVE); NITRITE,URINE NEGATIVE (NEGATIVE); PROTEIN,URINE NEGATIVE (NEGATIVE); URINE SPECIFIC GRAVITY 1.011; UROBILINOGEN,URINE NEGATIVE mg/dL (<2.0)
[2019-03-18 18:44] LABS: ALBUMIN 4.9 g/dL (3.5-5.0); ALKALINE PHOSPHATASE 85 U/L (38-126); ANION GAP 13 (5-19); ASPARTATE AMINO TRANSFERASE 27 U/L (14-36); BILIRUBIN,DIRECT 0.3 mg/dL (0.0-0.4); BILIRUBIN,TOTAL 0.6 mg/dL (0.2-1.3); BLOOD UREA NITROGEN 25 mg/dL (7-20); CARBON DIOXIDE 24 mmol/L (22-30); CHLORIDE 97 mmol/L (98-107); CREATINE KINASE 61 U/L (30-135); GLUCOSE 86 mg/dL (75-110); POTASSIUM 4.8 mmol/L (3.6-5.0); TOTAL PROTEIN 8.3 g/dL (6.3-8.2)
[2019-03-18 18:55] LABS: CREATINE KINASE MB 1.46 ng/mL (<4.55)
[2019-03-18 18:57] LABS: TROPONIN I < 0.012 ng/mL
== END 2019-03-18 19:08 | disposition left against medical advice (07) ==
LOC: ER 17:01
DX: R03.0 Elevated blood-pressure reading, without diagnosis of hypertension (principal); Z79.01 Long term (current) use of anticoagulants
CPT/HCPCS: 36415; 80053; 81001; 82550; 82553; 84484; 85025; 99281

== ENCOUNTER 2020-02-03 12:34 | Emergency (ER) | payer MEDICARE, BC ==
--- NOTE | 2020-02-03 12:57 | ER Document Report ---
ED Medical Screen (RME) - General Chief Complaint: Back Pain Stated Complaint: LOWER BACK PAIN/RIB PAIN/NO APPETITE Time Seen by Provider: 02/03/20 12:55 Primary Care Provider: SHASTA METCALF MD [Primary Care Provider] - Follow up as needed Notes: Right lateral thoracic back pain with radiation around to the rib area intermittently for 2 weeks history of hypertension states that the pain is better when she ambulates worse when she sits or lies down. TRAVEL OUTSIDE OF THE [place] IN LAST 30 DAYS: No - Related Data Allergies/Adverse Reactions: No Known Allergies Allergy (Unverified 12/29/18 17:19) Past Medical History Renal/ Medical History: Denies: Hx Peritoneal Dialysis Past Surgical History: Reports: Hx Orthopedic Surgery Physical Exam - Vital signs Vitals: Temp Pulse Resp BP Pulse Ox 98.7 F 62 20 207/87 H 97 02/03/20 12:41 02/03/20 12:41 02/03/20 12:41 02/03/20 12:41 02/03/20 12:41 Course - Vital Signs Vital signs: Temp Pulse Resp BP Pulse Ox 98.7 F 62 20 207/87 H 97 02/03/20 12:41 02/03/20 12:41 02/03/20 12:41 02/03/20 12:41 02/03/20 12:41 Doctor's Discharge - Discharge Referrals: SHASTA METCALF MD [Primary Care Provider] - Follow up as needed
--- NOTE | 2020-02-03 13:34 | RADIOLOGY REPORT (SQ) ---
EXAM DESCRIPTION: CHEST 2 VIEWS IMAGES COMPLETED DATE/TIME: 02/03/2020 12:12 pm REASON FOR STUDY: pain COMPARISON: 12/29/2018 EXAM PARAMETERS: NUMBER OF VIEWS: two views TECHNIQUE: Digital Frontal and Lateral radiographic views of the chest acquired. RADIATION DOSE: NA LIMITATIONS: none FINDINGS: LUNGS AND PLEURA: Lungs are hyperinflated. Biapical pleural and parenchymal scarring. No focal consolidation or pleural effusion. No pneumothorax. MEDIASTINUM AND HILAR STRUCTURES: Large hiatal hernia with air-fluid level, stable. HEART AND VASCULAR STRUCTURES: Heart normal size. No evidence for failure. BONES: No acute findings. HARDWARE: None in the chest. OTHER: No other significant finding. IMPRESSION: No acute cardiopulmonary disease. Hyperinflated lungs which can be seen with obstructiv e lung disease. Large hiatal hernia. TECHNICAL DOCUMENTATION: JOB ID: [id number] 2010 [employer]- All Rights Reserved Reading location - IP/workstation name: [email or web address]
[2020-02-03 13:37] LABS: ABSOLUTE EOSINOPHILS # (AUTO) 0.2 10^3/uL (0.0-0.6); ABSOLUTE LYMPHOCYTES (AUTO) 0.8 10^3/uL (0.5-4.7); ABSOLUTE MONOCYTES (AUTO) 0.4 10^3/uL (0.1-1.4); ABSOLUTE NEUT (AUTO) 3.1 10^3/uL (1.7-8.2); BASOPHILS % (AUTO) 0.8 % (0-2); EOSINOPHILS % (AUTO) 4.9 % (0-6); HEMATOCRIT 38.3 % (36.0-47.0); HEMOGLOBIN 12.4 g/dL (12.0-15.5); LYMPHOCYTES % (AUTO) 17.9 % (13-45); MEAN CORPUSCULAR HGB CONC 32.4 g/dL (32.0-36.0); MEAN CORPUSCULAR VOLUME 83 fl (80-97); MONOCYTES % (AUTO) 7.9 % (3-13); PLATELET COUNT 244 10^3/uL (150-450); RED CELL DISTRIBUTION WIDTH 15.6 % (11.5-14.0); SEGMENTED NEUTROPHILS % (AUTO) 68.5 % (42-78); TOTAL CELLS COUNTED % (AUTO) 100 %; WHITE BLOOD COUNT 4.5 10^3/uL (4.0-10.5)
[2020-02-03 13:57] LABS: ALBUMIN 4.3 g/dL (3.5-5.0); ALKALINE PHOSPHATASE 88 U/L (38-126); ANION GAP 8 (5-19); ASPARTATE AMINO TRANSFERASE 23 U/L (14-36); BILIRUBIN,DIRECT 0.4 mg/dL (0.0-0.4); BILIRUBIN,TOTAL 0.8 mg/dL (0.2-1.3); BLOOD UREA NITROGEN 19 mg/dL (7-20); CALCIUM 9.2 mg/dL (8.4-10.2); CARBON DIOXIDE 25 mmol/L (22-30); CHLORIDE 99 mmol/L (98-107); GLUCOSE 96 mg/dL (75-110); POTASSIUM 4.7 mmol/L (3.6-5.0); TOTAL PROTEIN 7.7 g/dL (6.3-8.2)
--- NOTE | 2020-02-03 14:07 | EKG REPORT ---
SEVERITY:- ABNORMAL ECG - SINUS RHYTHM VENTRICULAR PREMATURE COMPLEX LVH WITH SECONDARY REPOLARIZATION ABNORMALITY ANTERIOR ST ELEVATION, PROBABLY DUE TO LVH : Confirmed by: Saad Haas MD 03-Feb-2020 14:05:50
--- NOTE | 2020-02-03 16:35 | ER Document Report ---
ED GI/ - General Chief Complaint: Flank Pain Stated Complaint: LOWER BACK PAIN/RIB PAIN/NO APPETITE Time Seen by Provider: 02/03/20 12:55 Primary Care Provider: SHASTA METCALF MD [Primary Care Provider] - Follow up as needed Notes: HPI: 84-year-old female that presents today stating around 2 weeks of some right posterior flank pain that radiates slightly to the right lateral ribs. She denies any trauma, cough, fever, vomiting, lower abdominal pain, dysuria, incontinence, weakness of the legs, radiation to the chest, chest pain, shortness of breath. She states it is worse when she lays at night. She denies any real other aggravating relieving factors. ROS: See HPI All other review of systems reviewed and otherwise negative Reviewed vital signs and nursing note as charted by RN. PHYSICAL EXAM: CONSTITUTIONAL: Alert and oriented and responds appropriately to questions. Well-appearing; well-nourished HEAD: Normocephalic; atraumatic NECK: Supple without meningismus; non-tender; no cervical lymphadenopathy, no masses CARD: Regular rate and rhythm; no murmurs; symmetric distal pulses RESP: Normal chest excursion without splinting or tachypnea; breath sounds clear and equal bilaterally; no wheezes, no rhonchi, no rales ABD/GI: Normal bowel sounds; non-distended; soft, non-tender currently to deep palpation of all 4 quadrants of the abdomen BACK: The back appears normal and is non-tender to palpation EXT: Normal ROM in all joints; non-tender to palpation; no edema SKIN: No acute lesions noted NEURO: CN 2-12 intact; 5/5 bilateral upper and lower extremity strength with sensation intact to light touch PSYCH: The patient's mood and manner are appropriate. Grooming and personal hygiene are appropriate. TRAVEL OUTSIDE OF THE [place] IN LAST 30 DAYS: No - Related Data Allergies/Adverse Reactions: No Known Allergies Allergy (Verified 02/03/20 13:02) Past Medical History - Social History Smoking Status: Never Smoker Frequency of alcohol use: None Drug Abuse: None Family History: Hypertension Patient has homicidal ideation: No - Past Medical History Cardiac Medical History: Reports: Hx Atrial Fibrillation, Hx Hypertension Renal/ Medical History: Denies: Hx Peritoneal Dialysis Musculoskeletal Medical History: Reports Hx Arthritis Past Surgical History: Reports: Hx Hysterectomy, Hx Orthopedic Surgery - Bilateral knee replacement Physical Exam - Vital signs Vitals: Temp Pulse Resp BP Pulse Ox 98.7 F 62 20 207/87 H 97 02/03/20 12:41 02/03/20 12:41 02/03/20 12:41 02/03/20 12:41 02/03/20 12:41 Course - Re-evaluation Re-evalutation: Given the above history and physical I will obtain basic labs, x-ray of the chest, and reassess. If this is unremarkable I will most likely proceed with a CT renal colic protocol. I do believe PE, dissection to be unlikely. Patient does have tenderness to the right posterior ribs. I would like to evaluate for the possibility of displaced rib fractures. 02/03/20 17:37 Repeat blood pressure was 180/70. CT scan as recorded. No headache, double vision, chest pain, abdominal pain, lower extremity swelling. Still no weakness or numbness. No obvious urinary tract infection. Patient does have gallstones but no tenderness to the right upper quadrant and no association with food. It is worse at night. I discussed with the patient and the son in the room, that I am happy to call the surgeon for evaluation. I have low suspicion for an infected gallbladder. She states that she would like to follow-up with the [facility] physician for further assessment. Given the above history and physical, patient will be discharged home with strict return precautions and follow-up with the primary care physician. 02/03/20 18:36 Patient's pain improved with Tylenol. Both the patient and the son do not want to be admitted at this time for possible gallbladder evaluation/possible resection. They do have a primary care physician follow-up. I will also provide a general surgeon as well as strict return precautions. They are very comfortable with this plan. - Vital Signs Vital signs: Temp Pulse Resp BP Pulse Ox 97.6 F 80 18 141/82 H 98 02/03/20 18:20 02/03/20 18:20 02/03/20 18:20 02/03/20 18:20 02/03/20 18:20 - Laboratory Result Diagrams: 02/03/20 13:25 02/03/20 13:25 Laboratory results interpreted by me: 02/03/20 02/03/20 13:25 13:25 RDW 15.6 H Sodium 132.1 L Est GFR ( Amer) 50 L Est GFR (MDRD) Non-Af 41 L Discharge - Discharge Clinical Impression: Right flank pain, Gallstones Condition: Good Disposition: HOME, SELF-CARE Additional Instructions: Come back immediately for any increased pain, change in location or quality of pain, fevers, vomiting, shortness of breath, weakness or numbness of the arms or legs, or any other acute problems. Please make sure that you follow-up with the primary specialist as discussed. Referrals: SHASTA METCALF MD [Primary Care Provider] - Follow up as needed APRIL CESPEDES MD [ACTIVE STAFF] - Follow up as needed
--- NOTE | 2020-02-03 17:06 | RADIOLOGY REPORT (SQ) ---
EXAM DESCRIPTION: CT ABD/PELVIS NO ORAL OR IV IMAGES COMPLETED DATE/TIME: 02/03/2020 3:42 pm REASON FOR STUDY: Right flank pain . COMPARISON: Chest radiograph same date TECHNIQUE: CT scan of the abdomen and pelvis performed without intravenous or oral contrast. Images reviewed with lung, soft tissue, and bone windows. Reconstructed coronal and sagittal MPR images revi ewed. All images stored on PACS. All CT scanners at this facility use dose modulation, iterative reconstruction, and/or weight based d osing when appropriate to reduce radiation dose to as low as reasonably achievable (ALARA). [facility]: Dose Right [facility]: CareDose [facility]: Dose Right [facility]: Teradose 4D [facility]: Smart [employer] RADIATION DOSE: CT Rad equipment meets quality standard of care and radiation dose reduction techniq ues were employed. CTDIvol: 5.2 mGy. DLP: 234 mGy-cm.mGy. LIMITATIONS: None. FINDINGS: LOWER CHEST: There is subpleural reticulation and pulmonary emphysema at the lung bases. Large hiatal hernia. No focal consolidation or pleural effusion. NON-CONTRASTED LIVER, SPLEEN, ADRENALS: Evaluation limited by lack of IV contrast. No identified sign ificant masses. PANCREAS: No masses. No peripancreatic inflammatory changes. GALLBLADDER: Gallstones. No inflammatory changes to suggest cholecystitis. RIGHT KIDNEY AND URETER: No suspicious masses. Assessment limited by lack of IV contrast. No signif icant calcifications. No hydronephrosis or hydroureter. LEFT KIDNEY AND URETER: No suspicious masses. Assessment limited by lack of IV contrast. No signifi cant calcifications. No hydronephrosis or hydroureter. AORTA AND RETROPERITONEUM: No aneurysm. No retroperitoneal masses or adenopathy. BOWEL AND PERITONEAL CAVITY: No obvious masses or inflammatory changes. No free fluid. APPENDIX: Normal. PELVIS, BLADDER, AND ABDOMINAL WALL:No abnormal masses. No free fluid. Bladder normal. 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 No acute fracture or loss of vertebral body height. OTHER: No other significant finding. IMPRESSION: 1. No renal or ureteral calculi. No hydronephrosis. 2. Cholelithiasis. No CT evidence of acute cholecystitis. 3. Appendix is normal. 4. 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 5. Large hiatal hernia. COMMENT: Quality ID # 436: Final reports with documentation of one or more dose reduction techniques (e.g., Automated exposure control, adjustment of the mA and/or kV according to patient size, use of iterative reconstruction technique) TECHNICAL DOCUMENTATION: JOB ID: [id number] 2010 [employer]- All Rights Reserved Reading location - IP/workstation name: [email or web address]
[2020-02-03 17:09] LABS: APPEARANCE,URINE CLEAR; BILIRUBIN,URINE NEGATIVE (NEGATIVE); COLOR,URINE STRAW; GLUCOSE, URINE NEGATIVE (NEGATIVE); KETONES,URINE NEGATIVE (NEGATIVE); LEUKOCYTE ESTERASE,URINE NEGATIVE (NEGATIVE); NITRITE,URINE NEGATIVE (NEGATIVE); PROTEIN,URINE NEGATIVE (NEGATIVE); URINE SPECIFIC GRAVITY 1.004; UROBILINOGEN,URINE NEGATIVE mg/dL (<2.0)
[2020-02-03] MEDS ORDERED: ACETAMINOPHEN 325 MG TABLET PO ONE (17:47)
[2020-02-03 18:21] VITALS: BP 141/82
== END 2020-02-03 18:50 | disposition home or self-care (01) ==
LOC: ER 12:34
DX: K80.80 Other cholelithiasis without obstruction (principal); R10.9 Unspecified abdominal pain; M54.5 Low back pain; R07.81 Pleurodynia; R63.0 Anorexia; I48.91 Unspecified atrial fibrillation; I10 Essential (primary) hypertension
CPT/HCPCS: 93005; 99284; 36415; 83690; 85025; 80053; 81001; 84484; 71046; 74176; 93010; A9270

== ENCOUNTER 2020-03-13 08:32 | Emergency (ER) | payer MEDICARE, BC ==
[2020-03-13 10:12] LABS: ABSOLUTE EOSINOPHILS # (AUTO) 0.3 10^3/uL (0.0-0.6); ABSOLUTE LYMPHOCYTES (AUTO) 0.6 10^3/uL (0.5-4.7); ABSOLUTE MONOCYTES (AUTO) 0.5 10^3/uL (0.1-1.4); ABSOLUTE NEUT (AUTO) 5.3 10^3/uL (1.7-8.2); BASOPHILS % (AUTO) 0.6 % (0-2); EOSINOPHILS % (AUTO) 4.6 % (0-6); HEMATOCRIT 34.8 % (36.0-47.0); HEMOGLOBIN 11.4 g/dL (12.0-15.5); LYMPHOCYTES % (AUTO) 8.8 % (13-45); MEAN CORPUSCULAR HEMOGLOBIN 27.3 pg (27.0-33.4); MEAN CORPUSCULAR HGB CONC 32.7 g/dL (32.0-36.0); MEAN CORPUSCULAR VOLUME 83 fl (80-97); MONOCYTES % (AUTO) 7.3 % (3-13); PLATELET COUNT 601 10^3/uL (150-450); RED BLOOD COUNT 4.17 10^6/uL (3.72-5.28); RED CELL DISTRIBUTION WIDTH 17.5 % (11.5-14.0); SEGMENTED NEUTROPHILS % (AUTO) 78.7 % (42-78); TOTAL CELLS COUNTED % (AUTO) 100 %; WHITE BLOOD COUNT 6.7 10^3/uL (4.0-10.5)
--- NOTE | 2020-03-13 10:29 | RADIOLOGY REPORT (SQ) ---
EXAM DESCRIPTION: CHEST SINGLE VIEW IMAGES COMPLETED DATE/TIME: 03/13/2020 9:52 am REASON FOR STUDY: chest pain COMPARISON: 02/03/2020 EXAM PARAMETERS: NUMBER OF VIEWS: One view. TECHNIQUE: Single frontal radiographic view of the chest acquired. RADIATION DOSE: NA LIMITATIONS: Suboptimal patient positioning. FINDINGS: LUNGS AND PLEURA: Suboptimal patient positioning limits examination. A left lung base opa city may be present. MEDIASTINUM AND HILAR STRUCTURES: Large hiatal hernia. HEART AND VASCULAR STRUCTURES: Grossly stable. BONES: No acute findings. HARDWARE: None in the chest. OTHER: No other significant finding. IMPRESSION: Examination limited by significant patient rotation. A left lung base consolidation may be present. Large hiatal hernia. Consider dedicated PA/Lat chest imaging when feasible. TECHNICAL DOCUMENTATION: JOB ID: [id number] 2010 [employer]- All Rights Reserved Reading location - IP/workstation name: [email or web address]
[2020-03-13 10:40] LABS: ALBUMIN 3.7 g/dL (3.5-5.0); ALKALINE PHOSPHATASE 101 U/L (38-126); ANION GAP 11 (5-19); ASPARTATE AMINO TRANSFERASE 18 U/L (14-36); BILIRUBIN,DIRECT 0.2 mg/dL (0.0-0.4); BILIRUBIN,TOTAL 0.6 mg/dL (0.2-1.3); BLOOD UREA NITROGEN 19 mg/dL (7-20); CALCIUM 9.4 mg/dL (8.4-10.2); CARBON DIOXIDE 25 mmol/L (22-30); CHLORIDE 102 mmol/L (98-107); CREATINE KINASE 38 U/L (30-135); GLUCOSE 98 mg/dL (75-110); POTASSIUM 4.3 mmol/L (3.6-5.0); TOTAL PROTEIN 7.3 g/dL (6.3-8.2)
[2020-03-13 10:56] LABS: TROPONIN I < 0.012 ng/mL
--- NOTE | 2020-03-13 12:06 | RADIOLOGY REPORT (SQ) ---
EXAM DESCRIPTION: CTA CHEST IMAGES COMPLETED DATE/TIME: 03/13/2020 11:37 am REASON FOR STUDY: left cp/sob COMPARISON: 03/13/2020 TECHNIQUE: CT scan of the chest performed using helical scanning technique with dynamic intravenous contrast injection. Images reviewed with lung, soft tissue and bone windows. Reconstructed coronal and sagittal MPR images reviewed. Additional 3 dimensional post-processing performed to develop Maximal Intensity Projection images (IA P). All images stored on PACS. All CT scanners at this facility use dose modulation, iterative reconstruction, and/or weight based d osing when appropriate to reduce radiation dose to as low as reasonably achievable (ALARA). [facility]: Dose Right [facility]: CareDose [facility]: Dose Right [facility]: Teradose 4D [facility]: [employer] CONTRAST TYPE AND DOSE: contrast/concentration: Isovue 350.00 mmol/ml; Total Contrast Delivered: 51. 0 ml; Total Saline Delivered: 72.0 ml Contrast bolus adequate for pulmonary arteries and aorta. RENAL FUNCTION: BUN 19; creatinine 1.19 RADIATION DOSE: CT Rad equipment meets quality standard of care and radiation dose reduction techniq ues were employed. CTDIvol: 6.6 - 19.4 mGy. DLP: 614 mGy-cm. . LIMITATIONS: None. FINDINGS: LUNGS AND PLEURA: Left-sided pleural effusion may be partially loculated, but demonstrates simple Hounsfield unit throughout. Increased interstitial markings with subpleural reticulation and scarring suggests an element of pulmonary fibrosis. No focal consolidation. No pneumothorax. AORTA AND GREAT VESSELS: Diffuse calcified and noncalcified atherosclerotic plaque. No aneurysm. No dissection. HEART: No pericardial effusion. Moderate to marked coronary artery calcifications. PULMONARY ARTERIES: No emboli visualized in the main pulmonary arteries or the segmental branches. HILAR AND MEDIASTINAL STRUCTURES: Large hiatal hernia. No mediastinal lymphadenopathy or mass. HARDWARE: None in the chest. UPPER ABDOMEN: No significant findings. Limited exam. THYROID AND OTHER SOFT TISSUES: No masses. No adenopathy. BONES: No acute or significant finding. 3D MIPS: Confirm above findings. OTHER: No other significant finding. IMPRESSION: No evidence of central or segmental pulmonary embolus. A simple left-sided pleural effu miguel appears to be partially loculated. This is a nonspecific finding. Background of likely pulmona ry fibrosis. Chronic and incidental findings as detailed above. COMMENT: Quality ID # 436: Final reports with documentation of one or more dose reduction techniques (e.g., Automated exposure control, adjustment of the mA and/or kV according to patient size, use of iterative reconstruction technique) TECHNICAL DOCUMENTATION: JOB ID: [id number] 2010 [employer]- All Rights Reserved Reading location - IP/workstation name: [email or web address]
--- NOTE | 2020-03-13 13:11 | ER Document Report ---
ED Cardiac - General Chief Complaint: Chest Pain Stated Complaint: RIB/FLANK PAIN/SHORTNESS OF BREATH Time Seen by Provider: 03/13/20 10:33 Primary Care Provider: AFSANEH SANCHES FNP-C [Primary Care Provider] - Follow up as needed Information source: Patient TRAVEL OUTSIDE OF THE [place] IN LAST 30 DAYS: No - HPI Notes: Patient presents with left-sided chest pain. Is been present for approximate 3 days. It is better with Tylenol and worse with a deep breaths. No significant radiation. She has had a mild cough. No fever sweats or chills. No vomiting or diarrhea. The pain is been moderate in intensity. She denies any known covert virus exposures. Pain is been sharp. - Related Data Allergies/Adverse Reactions: No Known Allergies Allergy (Verified 02/03/20 13:02) Past Medical History - General Information source: Patient - Social History Smoking Status: Never Smoker Frequency of alcohol use: None Drug Abuse: None Family History: Hypertension - Past Medical History Cardiac Medical History: Reports: Hx Atrial Fibrillation, Hx Hypertension Renal/ Medical History: Denies: Hx Peritoneal Dialysis Musculoskeletal Medical History: Reports Hx Arthritis Past Surgical History: Reports: Hx Hysterectomy, Hx Orthopedic Surgery - Bilateral knee replacement Review of Systems - Review of Systems Constitutional: denies: Chills, Fever Cardiovascular: Chest pain. denies: Palpitations, Heart racing Respiratory: Cough. denies: Hemoptysis -: Yes All other systems reviewed and negative Physical Exam - Vital signs Vitals: Temp Pulse Resp BP Pulse Ox 97.7 F 102 H 18 152/65 H 98 03/13/20 08:37 03/13/20 08:37 03/13/20 08:37 03/13/20 08:37 03/13/20 08:37 Interpretation: Tachycardic - General General appearance: Appears well, Alert - HEENT Head: Normocephalic, Atraumatic Eyes: Normal Pupils: PERRL - Respiratory Respiratory status: No respiratory distress Chest status: Nontender Breath sounds: Decreased air movement - Decrease in the left lower lobe Chest palpation: Normal - Cardiovascular Rhythm: Irregularly irregular, Tachycardia Heart sounds: Normal auscultation Murmur: No - Abdominal Inspection: Normal Distension: No distension Bowel sounds: Normal Tenderness: Nontender Organomegaly: No organomegaly - Back Back: Normal, Nontender - Extremities General upper extremity: Normal inspection, Nontender, Normal color, Normal ROM, Normal temperature General lower extremity: Normal inspection, Nontender, Normal color, Normal ROM, Normal temperature, Normal weight bearing. No: Yesi's sign - Neurological Neuro grossly intact: Yes Cognition: Normal Orientation: AAOx4 Evelyn Coma Scale Eye Opening: Spontaneous [place] Coma Scale Verbal: Oriented Evelyn Coma Scale Motor: Obeys Commands Evelyn Coma Scale Total: 15 Speech: Normal Motor strength normal: LUE, RUE, LLE, RLE Sensory: Normal - Psychological Associated symptoms: Normal affect, Normal mood - Skin Skin Temperature: Warm Skin Moisture: Dry Skin Color: Normal Course - Re-evaluation Re-evalutation: 03/13/20 13:09 Patient presents with left-sided chest pain. She has a loculated effusion on the side. She does not have a elevated white count or fever but I will treat her with antibiotics. There is not appear to be any type of cardiac component or intra-abdominal component. Her vital signs are stable. She feels comfortable with being discharged and this seems as the most appropriate disposition at this time. I did discuss the case with the finisher machine, Dr. Arzate. He states he will see the patient in the office. - Vital Signs Vital signs: Temp Pulse Resp BP Pulse Ox 97.7 F 102 H 18 152/65 H 98 03/13/20 08:37 03/13/20 08:37 03/13/20 08:37 03/13/20 08:37 03/13/20 11:29 - Laboratory Result Diagrams: 03/13/20 09:50 03/13/20 09:50 Laboratory results interpreted by me: 03/13/20 03/13/20 09:50 09:50 Hgb 11.4 L Hct 34.8 L RDW 17.5 H Plt Count 601 H Lymph % (Auto) 8.8 L Seg Neutrophils % 78.7 H Est GFR ( Amer) 52 L Est GFR (MDRD) Non-Af 43 L - Diagnostic Test Radiology reviewed: Image reviewed, Reports reviewed - EKG Interpretation by Me Rate: Tachycardia - 103 Rhythm: A.Fib, PVC's Voltage: Consistent with LVH Discharge - Discharge Clinical Impression: Pleural effusion associated with pulmonary infection Condition: Stable Disposition: HOME, SELF-CARE Additional Instructions: Please call Dr. Rivera as soon as possible to arrange follow up Prescriptions: Levofloxacin [Levaquin 750 mg Tablet] 750 mg PO DAILY #10 tablet Referrals: BRIAN RIVERA MD [ACTIVE STAFF] - Follow up in 3-5 days
[2020-03-13] MEDS ORDERED: LEVOFLOXACIN 750 MG TABLET PO ONE (13:14)
[2020-03-13 14:03] VITALS: BP 162/85
--- NOTE | 2020-03-13 18:40 | EKG REPORT ---
SEVERITY:- ABNORMAL ECG - ATRIAL FIBRILLATION, V-RATE 81-133 VENTRICULAR TRIGEMINY PROBABLE LVH WITH SECONDARY REPOL ABNRM : Confirmed by: Kia Patiño 13-Mar-2020 18:39:29
== END 2020-03-13 14:14 | disposition home or self-care (01) ==
LOC: ER 08:32
DX: J18.9 Pneumonia, unspecified organism (principal); J90 Pleural effusion, not elsewhere classified; I10 Essential (primary) hypertension; R00.0 Tachycardia, unspecified
CPT/HCPCS: 93005; 99285; 36415; 82553; 82550; 85025; 80053; 84484; 71045; 71275; 93010; A9270

== ENCOUNTER 2020-03-15 14:39 | Emergency (ER) | payer MEDICARE, BC ==
[2020-03-15 15:48] LABS: ABSOLUTE EOSINOPHILS # (AUTO) 0.1 10^3/uL (0.0-0.6); ABSOLUTE LYMPHOCYTES (AUTO) 0.5 10^3/uL (0.5-4.7); ABSOLUTE MONOCYTES (AUTO) 0.3 10^3/uL (0.1-1.4); ABSOLUTE NEUT (AUTO) 4.6 10^3/uL (1.7-8.2); BASOPHILS % (AUTO) 0.8 % (0-2); EOSINOPHILS % (AUTO) 1.8 % (0-6); HEMATOCRIT 31.2 % (36.0-47.0); HEMOGLOBIN 10.1 g/dL (12.0-15.5); LYMPHOCYTES % (AUTO) 8.5 % (13-45); MEAN CORPUSCULAR HEMOGLOBIN 27.1 pg (27.0-33.4); MEAN CORPUSCULAR HGB CONC 32.5 g/dL (32.0-36.0); MEAN CORPUSCULAR VOLUME 84 fl (80-97); MONOCYTES % (AUTO) 6.2 % (3-13); PLATELET COUNT 524 10^3/uL (150-450); RED BLOOD COUNT 3.74 10^6/uL (3.72-5.28); RED CELL DISTRIBUTION WIDTH 17.7 % (11.5-14.0); SEGMENTED NEUTROPHILS % (AUTO) 82.7 % (42-78); TOTAL CELLS COUNTED % (AUTO) 100 %; WHITE BLOOD COUNT 5.6 10^3/uL (4.0-10.5)
[2020-03-15 16:03] LABS: ALBUMIN 3.4 g/dL (3.5-5.0); ALKALINE PHOSPHATASE 83 U/L (38-126); ANION GAP 9 (5-19); ASPARTATE AMINO TRANSFERASE 20 U/L (14-36); BILIRUBIN,DIRECT 0.5 mg/dL (0.0-0.4); BILIRUBIN,TOTAL 0.6 mg/dL (0.2-1.3); BLOOD UREA NITROGEN 19 mg/dL (7-20); CALCIUM 9.2 mg/dL (8.4-10.2); CARBON DIOXIDE 23 mmol/L (22-30); CHLORIDE 101 mmol/L (98-107); GLUCOSE 122 mg/dL (75-110); POTASSIUM 4.7 mmol/L (3.6-5.0); TOTAL PROTEIN 6.9 g/dL (6.3-8.2)
--- NOTE | 2020-03-15 16:07 | RADIOLOGY REPORT (SQ) ---
EXAM DESCRIPTION: CHEST SINGLE VIEW IMAGES COMPLETED DATE/TIME: 03/15/2020 2:41 pm REASON FOR STUDY: dyspnea COMPARISON: 03/13/2020. CTA chest 03/13/2020. EXAM PARAMETERS: NUMBER OF VIEWS: One view. TECHNIQUE: Single frontal radiographic view of the chest acquired. RADIATION DOSE: NA LIMITATIONS: None. FINDINGS: LUNGS AND PLEURA: Small left pleural effusion with compressive atelectasis at the left jin g base, stable. Lungs are hyperinflated. Biapical pleural and parenchymal scarring is stable. The right lung remains clear. No pneumothorax. MEDIASTINUM AND HILAR STRUCTURES: No masses. Contour normal. HEART AND VASCULAR STRUCTURES: Moderate cardiomegaly is stable. BONES: No acute findings. HARDWARE: None in the chest. OTHER: Moderate hiatal hernia unchanged. IMPRESSION: No significant interval change. Left pleural effusion with compressive atelectasis of t he left lung base, stable. TECHNICAL DOCUMENTATION: JOB ID: [id number] 2010 [employer]- All Rights Reserved Reading location - IP/workstation name: [email or web address]
[2020-03-15 16:14] LABS: TROPONIN I 0.015 ng/mL
--- NOTE | 2020-03-15 16:24 | ER Document Report ---
ED General - General Chief Complaint: Near Syncope Stated Complaint: CHEST PAIN/SHORTNESS OF BREATH/NAUSEA/VOMITING Time Seen by Provider: 03/15/20 15:01 Primary Care Provider: AFSANEH SANCHES FNP-C [Primary Care Provider] - Follow up as needed TRAVEL OUTSIDE OF THE [place] IN LAST 30 DAYS: No - HPI Notes: Patient is an 84-year-old female who presents to the emergency department for evaluation. Evidently she was seen here on . She was diagnosed with a loculated pleural effusion, empirically treated with antibiotics, and is supposed to follow-up with Dr. Arzate, pulmonology. The patient states that in the middle of the night on she woke up twice with chest heaviness and feeling short of breath, but has not done that since then. Today she felt slightly nauseated, her mouth was watering. She felt dizzy, perhaps as if she was going to pass out. She denies any pain at this time, but has had recent left-sided chest pain from the left side of her chest almost into her umbilicus. She states she does not have that pain at all at this time. Otherwise she has been taking her medications as prescribed, no other acute complaints or concerns. - Related Data Allergies/Adverse Reactions: No Known Allergies Allergy (Verified 02/03/20 13:02) Home Medications: metoprolol, xarelto, losartan Past Medical History - General Information source: Patient, Relative - Social History Smoking Status: Never Smoker Frequency of alcohol use: None Drug Abuse: None Family History: Hypertension - Past Medical History Cardiac Medical History: Reports: Hx Atrial Fibrillation, Hx Hypertension Renal/ Medical History: Denies: Hx Peritoneal Dialysis Musculoskeletal Medical History: Reports Hx Arthritis Past Surgical History: Reports: Hx Hysterectomy, Hx Orthopedic Surgery - Bilateral knee replacement Review of Systems - Review of Systems Constitutional: See HPI EENT: No symptoms reported Cardiovascular: See HPI Respiratory: See HPI Gastrointestinal: See HPI Genitourinary: No symptoms reported Musculoskeletal: No symptoms reported Skin: No symptoms reported Neurological/Psychological: No symptoms reported Physical Exam - Vital signs Vitals: Resp Pulse Ox 16 99 03/15/20 15:03 03/15/20 15:03 Course - Re-evaluation Re-evalutation: 03/15/20 16:38 Patient presents to the emergency department for evaluation. Primarily she came in here today because she was dizzy and nauseated. She has absolutely no symptoms at this time. Laboratory investigations reveal a mild bump in her kidney function and a mild drop in her sodium. She does admit to decreased p.o. intake since going home on . I did order some normal saline. Otherwise, her blood pressure remains elevated. She states it was normal at her last visit. I will do her vitals with ambulation, contact the son once I have gathered further information. 03/15/20 19:06 Patient's blood pressures were elevated, but on further evaluation she was on a small adult cuff. I do not believe that was the appropriate size for her. Her blood pressures are better in the appropriate sized cuff. The patient has no symptoms whatsoever, she is feeling improved. She did have some PVCs when turned, I suspect that might of been the palpitation she was complaining of. The patient of course also has atrial fibrillation. Her chest x-ray is unchanged. She is oxygenating at 99% on room air. She has absolutely no sympt oms. I spoke at length with the patient as well as her son, Alexander. I explained the importance of follow-up with Dr. Arzate on Tuesday, but at this point advised trying to keep oral intake up, and return to the ED with worsening. Both patient and son are amenable to this plan. - Vital Signs Vital signs: Temp Pulse Resp BP Pulse Ox 97.9 F 83 19 184/76 H 100 03/15/20 15:16 03/15/20 17:51 03/15/20 18:01 03/15/20 18:01 03/15/20 18:01 - Laboratory Result Diagrams: 03/15/20 15:34 03/15/20 15:34 Laboratory results interpreted by me: 03/15/20 03/15/20 03/15/20 15:34 15:34 15:34 Hgb 10.1 L Hct 31.2 L RDW 17.7 H Plt Count 524 H Lymph % (Auto) 8.5 L Seg Neutrophils % 82.7 H Sodium 133.3 L Creatinine 1.42 H Est GFR ( Amer) 42 L Est GFR (MDRD) Non-Af 35 L Glucose 122 H Direct Bilirubin 0.5 H NT-Pro-B Natriuret Pep 3320 H Albumin 3.4 L - Diagnostic Test Radiology reviewed: Image reviewed, Reports reviewed Radiology results interpreted by me: 03/15/20 16:39 Chest X-Ray 03/15/20 15:15 IMPRESSION: No significant interval change. Left pleural effusion with compressive atelectasis of the left lung base, stable. - EKG Interpretation by Me Additional EKG results interpreted by me: 03/15/20 16:39 Atrial fibrillation with a rate of 80 bpm, multiple PVCs noted. Normal axis. LVH. ST changes consistent with strain pattern. No change from prior study. Discharge - Discharge Clinical Impression: Dizziness, Dehydration, Pleural effusion associated with pulmonary infection Condition: Stable Disposition: HOME, SELF-CARE Instructions: Dizziness ([facility]) Additional Instructions: Continue your home medications as previously prescribed. It is important that you stay hydrated. Follow-up with pulmonology as scheduled on Tuesday. If you develop worsening or new concerning symptoms of any sort, return immediately to the emergency department for reevaluation. Referrals: AFSANEH SANCHES FNP-C [Primary Care Provider] - Follow up as needed
[2020-03-15] MEDS ORDERED: NORMAL SALINE 500 ML IV ONE (16:37)
[2020-03-15 19:24] VITALS: BP 181/107
--- NOTE | 2020-03-16 20:29 | EKG REPORT ---
SEVERITY:- ABNORMAL ECG - WANDERING ATRIAL PACEMAKER MULTIPLE VENTRICULAR PREMATURE COMPLEXES LVH WITH SECONDARY REPOLARIZATION ABNORMALITY : Confirmed by: Kia Patiño 16-Mar-2020 20:28:54
== END 2020-03-15 19:30 | disposition home or self-care (01) ==
LOC: ER 14:39
DX: J18.9 Pneumonia, unspecified organism (principal); J90 Pleural effusion, not elsewhere classified; E86.0 Dehydration; R42 Dizziness and giddiness; R07.9 Chest pain, unspecified; R06.02 Shortness of breath; R11.2 Nausea with vomiting, unspecified; R63.0 Anorexia; Z79.899 Other long term (current) drug therapy; Z79.01 Long term (current) use of anticoagulants; I48.91 Unspecified atrial fibrillation; I10 Essential (primary) hypertension
CPT/HCPCS: 93005; 99285; 36415; 87040; 85025; 80053; 84484; 83880; 71045; 93010; J7040

== ENCOUNTER 2020-03-20 08:01 | Inpatient (IN) | payer MEDICARE, BC ==
[2020-03-20 08:50] LABS: ALBUMIN 3.7 g/dL (3.5-5.0); ALKALINE PHOSPHATASE 77 U/L (38-126); ANION GAP 9 (5-19); ASPARTATE AMINO TRANSFERASE 22 U/L (14-36); BILIRUBIN,DIRECT 0.4 mg/dL (0.0-0.4); BILIRUBIN,TOTAL 0.5 mg/dL (0.2-1.3); BLOOD UREA NITROGEN 15 mg/dL (7-20); CALCIUM 8.8 mg/dL (8.4-10.2); CARBON DIOXIDE 25 mmol/L (22-30); CHLORIDE 96 mmol/L (98-107); GLUCOSE 101 mg/dL (75-110)
[2020-03-20 08:54] LABS: ABSOLUTE EOSINOPHILS # (AUTO) 0.2 10^3/uL (0.0-0.6); ABSOLUTE LYMPHOCYTES (AUTO) 0.8 10^3/uL (0.5-4.7); ABSOLUTE MONOCYTES (AUTO) 0.6 10^3/uL (0.1-1.4); ABSOLUTE NEUT (AUTO) 5.1 10^3/uL (1.7-8.2); BASOPHILS % (AUTO) 0.4 % (0-2); EOSINOPHILS % (AUTO) 3.3 % (0-6); HEMATOCRIT 33.2 % (36.0-47.0); HEMOGLOBIN 11.3 g/dL (12.0-15.5); LYMPHOCYTES % (AUTO) 12.1 % (13-45); MEAN CORPUSCULAR HEMOGLOBIN 27.6 pg (27.0-33.4); MEAN CORPUSCULAR HGB CONC 33.9 g/dL (32.0-36.0); MEAN CORPUSCULAR VOLUME 82 fl (80-97); MONOCYTES % (AUTO) 8.3 % (3-13); PLATELET COUNT 468 10^3/uL (150-450); RED BLOOD COUNT 4.07 10^6/uL (3.72-5.28); RED CELL DISTRIBUTION WIDTH 17.3 % (11.5-14.0); SEGMENTED NEUTROPHILS % (AUTO) 75.9 % (42-78); TOTAL CELLS COUNTED % (AUTO) 100 %; WHITE BLOOD COUNT 6.7 10^3/uL (4.0-10.5)
[2020-03-20 09:02] LABS: NT PRO BNP 2700 pg/mL (<450)
--- NOTE | 2020-03-20 09:07 | RADIOLOGY REPORT (SQ) ---
EXAM DESCRIPTION: CHEST SINGLE VIEW IMAGES COMPLETED DATE/TIME: 03/20/2020 8:42 am REASON FOR STUDY: sob COMPARISON: 03/15/2020 EXAM PARAMETERS: NUMBER OF VIEWS: One view. TECHNIQUE: Single frontal radiographic view of the chest acquired. RADIATION DOSE: NA LIMITATIONS: None. FINDINGS: LUNGS AND PLEURA: Improved aeration with residual airspace disease in the left lower lobe. Small left pleural effusion. Right lung is clear. MEDIASTINUM AND HILAR STRUCTURES: No masses. Contour normal. HEART AND VASCULAR STRUCTURES: Stable heart size. Normal vasculature. BONES: No acute findings. HARDWARE: None in the chest. OTHER: No other significant finding. IMPRESSION: Improving left lower lobe pneumonia. TECHNICAL DOCUMENTATION: JOB ID: [id number] 2010 [employer]- All Rights Reserved Reading location - IP/workstation name: [email or web address]
[2020-03-20 09:14] LABS: TROPONIN I < 0.012 ng/mL
--- NOTE | 2020-03-20 10:14 | EKG REPORT ---
SEVERITY:- ABNORMAL ECG - SINUS RHYTHM PROBABLE LEFT ATRIAL ABNORMALITY LVH WITH SECONDARY REPOLARIZATION ABNORMALITY : Confirmed by: Janelle Gunderson MD 20-Mar-2020 10:13:33
--- NOTE | 2020-03-20 10:46 | ER Document Report ---
ED Dizziness/Weakness - General Chief Complaint: General Weakness Stated Complaint: WEAKNESS Time Seen by Provider: 03/20/20 08:09 Primary Care Provider: AFSANEH SANCHES FNP-C [Primary Care Provider] - Follow up as needed Mode of Arrival: Medic Information source: Patient TRAVEL OUTSIDE OF THE [place] IN LAST 30 DAYS: No - HPI Notes: Patient is brought in by ambulance for weakness. Patient was diagnosed here with a possible pneumonia proxy 1 week ago and started on Levaquin. She has been continuing the Levaquin. However she continues to complain that she feels short of breath mainly when she lies flat. The shortness of breath is moderate to severe. It is worse with lying flat and better with sitting up. It is intermittent. Patient denies any significant pain. She states she has had significant nausea and has been unable to eat. This is now her third visit in roughly the last week to this emergency department. In between she is also had a visit to a book agent, a chief of production, and her primary care physician. Therefore this makes 6 visits to a doctor in 1 week for a lady who lives alone and is normally in a good state of health. She states she was prescribed Mucinex yesterday and took 1 pill and then began to have significant nausea and weakness after that. - Related Data Allergies/Adverse Reactions: No Known Allergies Allergy (Verified 03/20/20 09:09) Past Medical History - General Information source: Patient - Social History Smoking Status: Former Smoker Frequency of alcohol use: None Drug Abuse: None Family History: Hypertension - Past Medical History Cardiac Medical History: Reports: Hx Atrial Fibrillation, Hx Hypertension Renal/ Medical History: Denies: Hx Peritoneal Dialysis Musculoskeletal Medical History: Reports Hx Arthritis Past Surgical History: Reports: Hx Hysterectomy, Hx Orthopedic Surgery - Bilateral knee replacement Review of Systems - Review of Systems Constitutional: Malaise, Weakness Cardiovascular: denies: Chest pain, Palpitations Respiratory: Cough, Short of breath -: Yes All other systems reviewed and negative Physical Exam - Vital signs Vitals: Resp Pulse Ox 10 L 96 03/20/20 08:08 03/20/20 08:08 Interpretation: Normal - General General appearance: Appears well, Alert - HEENT Head: Normocephalic, Atraumatic Eyes: Normal Pupils: PERRL - Respiratory Respiratory status: No respiratory distress Chest status: Nontender Breath sounds: Decreased air movement Chest palpation: Normal - Cardiovascular Rhythm: Irregularly irregular Heart sounds: Normal auscultation Murmur: No - Abdominal Inspection: Normal Distension: No distension Bowel sounds: Normal Tenderness: Nontender Organomegaly: No organomegaly - Back Back: Normal, Nontender - Extremities General upper extremity: Normal inspection, Nontender, Normal color, Normal ROM, Normal temperature General lower extremity: Normal inspection, Nontender, Normal color, Normal ROM, Normal temperature, Normal weight bearing. No: Yesi's sign - Neurological Neuro grossly intact: Yes Cognition: Normal Orientation: AAOx4 Evelyn Coma Scale Eye Opening: Spontaneous Evelyn Coma Scale Verbal: Oriented [place] Coma Scale Motor: Obeys Commands Evelyn Coma Scale Total: 15 Speech: Normal Motor strength normal: LUE, RUE, LLE, RLE Sensory: Normal - Psychological Associated symptoms: Normal affect, Normal mood - Skin Skin Temperature: Warm Skin Moisture: Dry Skin Color: Normal Course - Re-evaluation Re-evalutation: 03/20/20 10:46 This is a patient with a known diagnosis of pneumonia. It appears to be improving by x-ray. Patient is taking oral antibiotics at home roughly for the last week. However patient has been having persistent weakness with nausea and inability to eat for the last week since she started treatment for this pneumonia. This is now her sixth visit to a doctor in roughly the last 7 days. At this time it seems prudent that patient seems to be failing outpatient oral antibiotic therapy. It seems reasonable for patient to be admitted for IV antibiotics as well as for some gut rest and rehydration. - Vital Signs Vital signs: Temp Pulse Resp BP Pulse Ox 98.2 F 78 16 163/82 H 99 03/20/20 08:48 03/20/20 08:48 03/20/20 08:48 03/20/20 08:48 03/20/20 08:48 - Laboratory Result Diagrams: 03/20/20 07:50 03/20/20 07:50 Laboratory results interpreted by me: 03/20/20 03/20/20 03/20/20 07:50 07:50 07:50 Hgb 11.3 L Hct 33.2 L RDW 17.3 H Plt Count 468 H Lymph % (Auto) 12.1 L Sodium 129.6 L Chloride 96 L Est GFR ( Amer) 52 L Est GFR (MDRD) Non-Af 43 L NT-Pro-B Natriuret Pep 2700 H - Diagnostic Test Radiology reviewed: Image reviewed, Reports reviewed - EKG Interpretation by Me Rate: Normal - 80 Rhythm: A.Fib Voltage: Consistent with LVH Discharge - Discharge Clinical Impression: Hyponatremia, Nausea, Weakness Pneumonia Qualifiers: Pneumonia type: due to unspecified organism Laterality: left Lung location: lower lobe of lung Qualified Code(s): J18.9 - Pneumonia, unspecified organism Condition: Serious Disposition: ADMITTED INPATIENT Admitting Provider: Luke (Hospitalist) Unit Admitted: [facility] Referrals: AFSANEH SANCHES FNP-C [Primary Care Provider] - Follow up as needed
[2020-03-20] MEDS ORDERED: ONDANSETRON HCL INJ/PF 4 MG/2 ML SDV IV PRN (11:14)
[2020-03-20] MEDS ORDERED: ACETAMINOPHEN 325 MG TABLET PO PRN (11:14)
--- NOTE | 2020-03-20 11:27 | PDOC H&P ---
History of Present Illness Admission Date/PCP: 03/20/20 11:11 ELLA PAGAN Patient complains of: Nausea and stomach discomfort for the last 1 week History of Present Illness: FRANCIA BECK is a 84 year old female With history of A. fib on Xarelto at home, hypertension on losartan came to the emergency room for the third time with complaining of not feeling well nauseated and queasiness in the stomach. She registered primary care physician 3 times. Initial visit shows left lower lobe pneumonia patient was given levofloxacin and patient is unable to tolerate levofloxacin at home. Came today with complaints of nausea and not feeling well unsteady gait. Work-up in the ER indicates serum sodium of 129.6 may be secondary to nausea and chest x-ray shows improvement in the left lower lobe pneumonia. Patient CODE STATUS is DNR/DNI. Past Medical History Cardiac Medical History: Reports: Atrial Fibrillation, Hypertension Musculoskeltal Medical History: Reports: Arthritis Psychiatric Medical History: Reports: None Past Surgical History Past Surgical History: Reports: Hysterectomy, Orthopedic Surgery - Bilateral knee replacement Social History Smoking Status: Former Smoker Frequency of Alcohol Use: None Hx Recreational Drug Use: No Drugs: None - Advance Directive Resuscitation Status: Do Not Resuscitate Family History Family History: Hypertension Parental Family History Reviewed: Yes - Family history of hypertension Children Family History Reviewed: Yes Sibling(s) Family History Reviewed.: Yes Medication/Allergy Home Medications: Acetaminophen [Tylenol Arthritis] 650 mg PO DAILY 12/30/18 Aspirin [Adult Low Dose Aspirin EC] 81 mg PO DAILY 12/30/18 Apixaban [Eliquis 5 mg Tablet] 5 mg PO BID 30 Days #60 tablet 12/31/18 Losartan Potassium [Cozaar 25 mg Tablet] 25 mg PO BID 30 Days #60 tablet 12/31/18 Metoprolol Tartrate [Lopressor 50 mg Tablet] 50 mg PO Q12 30 Days #30 tablet 12/31/18 Tizanidine HCl 2 mg PO Q8 3 Days #9 tablet 12/31/18 Levofloxacin [Levaquin 750 mg Tablet] 750 mg PO DAILY #10 tablet 03/13/20 Allergies/Adverse Reactions: No Known Allergies Allergy (Verified 03/20/20 09:09) Review of Systems Constitutional: PRESENT: weakness. ABSENT: fatigue, fever(s) Eyes: PRESENT: visual disturbances Ears: PRESENT: hearing changes Nose, Mouth, and Throat: PRESENT: sore throat Respiratory: ABSENT: cough, hemoptysis Gastrointestinal: ABSENT: abdominal pain, constipation, diarrhea, hematemesis, hematochezia, nausea, vomiting Musculoskeletal: ABSENT: joint swelling Neurological: ABSENT: abnormal gait, abnormal speech, confusion, dizziness, focal weakness, syncope Psychiatric: ABSENT: anxiety, depression, homidical ideation, suicidal ideation Endocrine: ABSENT: cold intolerance, heat intolerance, polydipsia, polyuria Physical Exam Vital Signs: Temp Pulse Resp BP Pulse Ox 98.2 F 78 16 163/82 H 99 03/20/20 08:48 03/20/20 08:48 03/20/20 08:48 03/20/20 08:48 03/20/20 08:48 Intake & Output 03/19/20 03/20/20 03/21/20 06:59 06:59 06:59 Weight 60 kg General appearance: PRESENT: no acute distress, well-developed, well-nourished Head exam: PRESENT: atraumatic Eye exam: PRESENT: PERRLA Ear exam: PRESENT: normal external ear exam Mouth exam: PRESENT: neck supple Teeth exam: PRESENT: poor dentation Neck exam: ABSENT: carotid bruit, JVD, lymphadenopathy, thyromegaly Respiratory exam: PRESENT: decreased breath sounds Cardiovascular exam: PRESENT: RRR. ABSENT: diastolic murmur, rubs, systolic murmur GI/Abdominal exam: PRESENT: normal bowel sounds, soft. ABSENT: distended, guarding, mass, organolmegaly, rebound, tenderness Rectal exam: PRESENT: deferred Extremities exam: PRESENT: full ROM. ABSENT: calf tenderness, clubbing, pedal edema Neurological exam: PRESENT: alert, awake, oriented to person, oriented to place, oriented to time, oriented to situation, CN II-XII grossly intact. ABSENT: motor sensory deficit Psychiatric exam: PRESENT: appropriate affect, normal mood. ABSENT: homicidal ideation, suicidal ideation Results Laboratory Results: 03/20/20 07:50 03/20/20 07:50 03/20/20 03/20/20 07:50 07:50 WBC 6.7 RBC 4.07 Hgb 11.3 L Hct 33.2 L MCV 82 MCH 27.6 MCHC 33.9 RDW 17.3 H Plt Count 468 H Seg Neutrophils % 75.9 Sodium 129.6 L Potassium 4.0 Chloride 96 L Carbon Dioxide 25 Anion Gap 9 BUN 15 Creatinine 1.20 Est GFR ( Amer) 52 L Glucose 101 Calcium 8.8 Total Bilirubin 0.5 AST 22 Alkaline Phosphatase 77 Total Protein 7.0 Albumin 3.7 03/20/20 07:50 Troponin I < 0.012 NT-Pro-B Natriuret Pep 2700 H Impressions: Chest X-Ray 03/20/20 08:30 IMPRESSION: Improving left lower lobe pneumonia. Assessment and Plan - Diagnosis (1) Pneumonia Qualifiers: Pneumonia type: due to unspecified organism Laterality: left Lung location: lower lobe of lung Qualified Code(s): J18.9 - Pneumonia, unspecified organism Is this a current diagnosis for this admission?: Yes Plan: 03/20/2020-patient admitted with left lower lobe pneumonia failed outpatient antibiotic therapy plan is to start her on IV Rocephin 1 g daily and Zithromax 5 mg IV daily. Blood cultures and urine cultures are requested. Placed on oxygen 2 L via nasal cannula. Most likely community-acquired pneumonia. (2) Hyponatremia Is this a current diagnosis for this admission?: Yes Plan: 03/22/2020-serum sodium is 129.6. Hyponatremia most likely secondary to poor oral intake and nausea. Started on normal saline at 75 cc/h. (3) Nausea Is this a current diagnosis for this admission?: Yes Plan: 03/22/2020-patient came with persistent nausea start Zofran 4 mg IV every 6 as needed and nausea may be contributing factor for hyponatremia. (4) Hypertension Is this a current diagnosis for this admission?: No Plan: 03/20/2020-patient has history of hypertension chronic essential hypertension,, blood pressure is 163/82. Plan is to restart losartan and metoprolol patient taking at home. (5) Atrial fibrillation Is this a current diagnosis for this admission?: No Plan: 09/20/2019-patient has history of chronic persistent atrial fibrillation taking Xarelto and metoprolol at home. Heart rate is relatively controlled at this time. Plan is to continue Xarelto metoprolol during the hospital stay. - Time Anticipated Discharge Disposition: Home, Self Care Anticipated Discharge Timeframe: within 48 hours
[2020-03-20] MEDS: CEFTRIAXONE 1 GM/D5W RTU 1 GM/50 ML RTUPB IV SCH (11:56)
--- NOTE | 2020-03-20 12:42 | RADIOLOGY REPORT (SQ) ---
EXAM DESCRIPTION: CT CHEST WITHOUT IMAGES COMPLETED DATE/TIME: 03/20/2020 12:22 pm REASON FOR STUDY: pneumonia COMPARISON: 03/13/2029 TECHNIQUE: CT scan performed of the chest without intravenous contrast. Images reviewed with lung, soft tissue and bone windows. Reconstructed coronal and sagittal MPR images reviewed. All images st ored on PACS. All CT scanners at this facility use dose modulation, iterative reconstruction, and/or weight based d osing when appropriate to reduce radiation dose to as low as reasonably achievable (ALARA). [facility]: Dose Right [facility]: CareDose [facility]: Dose Right [facility]: Teradose 4D [facility]: [employer] Network RADIATION DOSE: CT Rad equipment meets quality standard of care and radiation dose reduction techniq ues were employed. CTDIvol: 6.6 mGy. DLP: 257 mGy-cm. mGy. LIMITATIONS: No technical limitations. FINDINGS: LUNGS AND PLEURA: Improved aeration in the left lung with decrease in amount of pleural fl uid. Volume estimated less than 500 cc. No evidence of empyema. Subpleural honeycombing in the mid dle lobe and right lower lobe. HILAR AND MEDIASTINAL STRUCTURES: Paraesophageal hernia. No identified masses or abnormal nodes. No obvious aneurysm. HEART AND VASCULAR STRUCTURES: No aneurysm. No pericardial effusion. UPPER ABDOMEN: No acute findings. Limited exam. THYROID AND OTHER SOFT TISSUES: No masses. No adenopathy. BONES: Nothing acute. HARDWARE: None in the chest. OTHER: No other significant findings. IMPRESSION: Improving pneumonia. TECHNICAL DOCUMENTATION: JOB ID: [id number] Quality ID # [id number]: Final reports with documentation of one or more dose reduction techniques (e.g., Au tomated exposure control, adjustment of the mA and/or kV according to patient size, use of iterative reconstruction technique) 2010 [employer]- All Rights Reserved Reading location - IP[facility]workstation name: [email or web address]
[2020-03-20] MEDS: NORMAL SALINE 1000 ML 1,000 ML IV PRN (13:32)
[2020-03-20 15:38] LABS: APPEARANCE,URINE CLEAR; BILIRUBIN,URINE NEGATIVE (NEGATIVE); COLOR,URINE YELLOW; GLUCOSE, URINE NEGATIVE (NEGATIVE); KETONES,URINE NEGATIVE (NEGATIVE); PROTEIN,URINE NEGATIVE (NEGATIVE); UROBILINOGEN,URINE NEGATIVE mg/dL (<2.0)
[2020-03-20 15:44] LABS: BACTERIA,URINE TRACE /HPF; RBC,URINE RARE /HPF
[2020-03-20] MEDS: RIVAROXABAN 10 MG TABLET PO SCH (17:54)
[2020-03-20] MEDS: AZITHROMYCIN 500 MG in DEXTROSE 5%-WATER 250 ML IV SCH (18:59)
[2020-03-20] MEDS: ZOLPIDEM TARTRATE 5 MG TABLET PO SCH ×2 (21:55→22:04)
[2020-03-20] MEDS ORDERED: (PENDING PHARMACY ID) (Zolpidem Tartrate [Ambien] 10 MG) PO SCH (22:00)
[2020-03-21 05:13] LABS: ABSOLUTE EOSINOPHILS # (AUTO) 0.2 10^3/uL (0.0-0.6); ABSOLUTE LYMPHOCYTES (AUTO) 0.7 10^3/uL (0.5-4.7); ABSOLUTE MONOCYTES (AUTO) 0.6 10^3/uL (0.1-1.4); ABSOLUTE NEUT (AUTO) 3.9 10^3/uL (1.7-8.2); BASOPHILS % (AUTO) 0.6 % (0-2); EOSINOPHILS % (AUTO) 4.1 % (0-6); HEMATOCRIT 32.8 % (36.0-47.0); HEMOGLOBIN 10.8 g/dL (12.0-15.5); LYMPHOCYTES % (AUTO) 13.6 % (13-45); MEAN CORPUSCULAR HEMOGLOBIN 27.2 pg (27.0-33.4); MEAN CORPUSCULAR VOLUME 82 fl (80-97); MONOCYTES % (AUTO) 10.4 % (3-13); PLATELET COUNT 372 10^3/uL (150-450); RED BLOOD COUNT 3.98 10^6/uL (3.72-5.28); RED CELL DISTRIBUTION WIDTH 17.7 % (11.5-14.0); SEGMENTED NEUTROPHILS % (AUTO) 71.3 % (42-78); TOTAL CELLS COUNTED % (AUTO) 100 %; WHITE BLOOD COUNT 5.4 10^3/uL (4.0-10.5)
[2020-03-21 05:35] LABS: ALBUMIN 3.1 g/dL (3.5-5.0); ALKALINE PHOSPHATASE 65 U/L (38-126); ANION GAP 7 (5-19); ASPARTATE AMINO TRANSFERASE 21 U/L (14-36); BILIRUBIN,DIRECT 0.3 mg/dL (0.0-0.4); BILIRUBIN,TOTAL 0.4 mg/dL (0.2-1.3); BLOOD UREA NITROGEN 12 mg/dL (7-20); CALCIUM 8.3 mg/dL (8.4-10.2); CARBON DIOXIDE 24 mmol/L (22-30); CHLORIDE 100 mmol/L (98-107); CHOLESTEROL 130.11 mg/dL (0-200); GLUCOSE 96 mg/dL (75-110); POTASSIUM 3.2 mmol/L (3.6-5.0); TOTAL PROTEIN 6.3 g/dL (6.3-8.2); TRIGLYCERIDES 83 mg/dL (<150)
[2020-03-21 05:46] LABS: DIRECT LDL 74 mg/dL (<100)
[2020-03-21] MEDS: PANTOPRAZOLE SODIUM 40 MG TABLET.DR PO SCH (05:58)
[2020-03-21] MEDS: NORMAL SALINE 1000 ML 1,000 ML IV PRN (05:59)
[2020-03-21 07:50] LABS: APPEARANCE,URINE CLEAR; BILIRUBIN,URINE NEGATIVE (NEGATIVE); COLOR,URINE STRAW; GLUCOSE, URINE NEGATIVE (NEGATIVE); KETONES,URINE NEGATIVE (NEGATIVE); LEUKOCYTE ESTERASE,URINE NEGATIVE (NEGATIVE); NITRITE,URINE NEGATIVE (NEGATIVE); PROTEIN,URINE NEGATIVE (NEGATIVE); URINE SPECIFIC GRAVITY 1.006; UROBILINOGEN,URINE NEGATIVE mg/dL (<2.0)
[2020-03-21] MEDS ORDERED: POTASSIUM CHLORIDE 10 MEQ TABLET.ER PO ONE (08:00)
[2020-03-21 08:11] LABS: ADD MANUAL MICROSCOPIC YES
[2020-03-21 08:12] LABS: RBC,URINE NONE SEEN /HPF
[2020-03-21] MEDS: METOPROLOL TARTRATE 50 MG TABLET PO SCH ×2 (09:04→21:11)
[2020-03-21] MEDS: LOSARTAN POTASSIUM 50 MG TABLET PO SCH ×2 (09:04→21:10)
[2020-03-21] MEDS: ASPIRIN 81 MG TABLET, ENT COATED PO SCH (09:04)
[2020-03-21 09:16] LABS: ALKALINE PHOSPHATASE 59 U/L (38-126); ANION GAP 7 (5-19); ASPARTATE AMINO TRANSFERASE 17 U/L (14-36); BILIRUBIN,DIRECT 0.3 mg/dL (0.0-0.4); BILIRUBIN,TOTAL 0.5 mg/dL (0.2-1.3); BLOOD UREA NITROGEN 12 mg/dL (7-20); CALCIUM 8.3 mg/dL (8.4-10.2); CARBON DIOXIDE 26 mmol/L (22-30); CHLORIDE 98 mmol/L (98-107); GLUCOSE 118 mg/dL (75-110); POTASSIUM 3.3 mmol/L (3.6-5.0); TOTAL PROTEIN 5.9 g/dL (6.3-8.2)
--- NOTE | 2020-03-21 09:37 | PDOC PROGRESS REPORT ---
Subjective Progress Note for:: 03/21/20 Subjective:: 84 year old female With history of A. fib on Xarelto at home, hypertension on losartan came to the emergency room for the third time with complaining of not feeling well nauseated and queasiness in the stomach. She registered primary care physician 3 times. Initial visit shows left lower lobe pneumonia patient was given levofloxacin and patient is unable to tolerate levofloxacin at home. Came today with complaints of nausea and not feeling well unsteady gait. Work-up in the ER indicates serum sodium of 129.6 may be secondary to nausea and chest x-ray shows improvement in the left lower lobe pneumonia. Patient CODE STATUS is DNR/DNI. 03/21/[id number]-old female admitted for left lower lobe pneumonia with failed outpatient antibiotic therapy. CT scan of the chest shows improvement in the left lower lobe pneumonia. Afebrile. WBC count within normal limits. No acute events in the last 24 hours. Reason For Visit: LEFT LOWER LOBE PNEUMONIA Physical Exam Vital Signs: Temp Pulse Resp BP Pulse Ox 97.2 F 80 17 149/66 H 96 03/21/20 07:26 03/21/20 07:26 03/21/20 07:26 03/21/20 07:26 03/21/20 07:26 Intake & Output 03/20/20 03/21/20 03/22/20 06:59 06:59 06:59 Intake Total 1820 Output Total 100 Balance 1720 Weight 60.4 kg General appearance: PRESENT: no acute distress, cooperative, well-developed Head exam: PRESENT: atraumatic Eye exam: PRESENT: PERRLA Ear exam: PRESENT: normal external ear exam Mouth exam: PRESENT: neck supple Teeth exam: PRESENT: poor dentation Neck exam: ABSENT: carotid bruit, JVD, lymphadenopathy, thyromegaly Respiratory exam: PRESENT: decreased breath sounds Cardiovascular exam: PRESENT: irregular rhythm, tachycardia GI/Abdominal exam: PRESENT: normal bowel sounds, soft. ABSENT: distended, guarding, mass, organolmegaly, rebound, tenderness Rectal exam: PRESENT: deferred Extremities exam: PRESENT: full ROM. ABSENT: calf tenderness, clubbing, pedal edema Neurological exam: PRESENT: alert, awake, oriented to person, oriented to place, oriented to time, oriented to situation, CN II-XII grossly intact. ABSENT: motor sensory deficit Psychiatric exam: PRESENT: appropriate affect, normal mood. ABSENT: homicidal ideation, suicidal ideation Results Laboratory Results: 03/21/20 04:24 03/21/20 08:28 03/20/20 03/21/20 03/21/20 15:10 04:24 04:24 WBC 5.4 RBC 3.98 Hgb 10.8 L Hct 32.8 L MCV 82 MCH 27.2 MCHC 33.0 RDW 17.7 H Plt Count 372 Seg Neutrophils % 71.3 Sodium 130.8 L Potassium 3.2 L Chloride 100 Carbon Dioxide 24 Anion Gap 7 BUN 12 Creatinine 1.05 Est GFR ( Amer) > 60 Glucose 96 Calcium 8.3 L Magnesium 1.8 Total Bilirubin 0.4 AST 21 Alkaline Phosphatase 65 Total Protein 6.3 Albumin 3.1 L Triglycerides 83 Cholesterol 130.11 LDL Cholesterol Direct 74 VLDL Cholesterol 17.0 HDL Cholesterol 32 L Urine Color YELLOW Urine Appearance CLEAR Urine pH 7.0 Ur Specific [place] 1.010 Urine Protein NEGATIVE Urine Glucose (UA) NEGATIVE Urine Ketones NEGATIVE Urine Blood NEGATIVE Urine Nitrite Ur Leukocyte Esterase Ur Squamous Epith Cells MODERATE 03/21/20 03/21/20 07:00 08:28 WBC RBC Hgb Hct MCV MCH MCHC RDW Plt Count Seg Neutrophils % Sodium 131.0 L Potassium 3.3 L Chloride 98 Carbon Dioxide 26 Anion Gap 7 BUN 12 Creatinine 1.08 Est GFR ( Amer) 58 L Glucose 118 H Calcium 8.3 L Magnesium 1.8 Total Bilirubin 0.5 AST 17 Alkaline Phosphatase 59 Total Protein 5.9 L Albumin 3.0 L Triglycerides Cholesterol LDL Cholesterol Direct VLDL Cholesterol HDL Cholesterol Urine Color STRAW Urine Appearance CLEAR Urine pH 7.0 Ur Specific [place] 1.006 Urine Protein NEGATIVE Urine Glucose (UA) NEGATIVE Urine Ketones NEGATIVE Urine Blood NEGATIVE Urine Nitrite NEGATIVE Ur Leukocyte Esterase NEGATIVE Ur Squamous Epith Cells FEW 03/20/20 03/20/20 03/20/20 07:50 11:55 17:48 Troponin I < 0.012 0.014 0.015 NT-Pro-B Natriuret Pep 2700 H 03/20/20 03/21/20 23:33 04:24 Troponin I < 0.012 NT-Pro-B Natriuret Pep 2420 H Impressions: Chest CT 03/20/20 00:00 IMPRESSION: Improving pneumonia. Chest X-Ray 03/20/20 08:30 IMPRESSION: Improving left lower lobe pneumonia. Assessment and Plan - Diagnosis (1) Pneumonia Qualifiers: Pneumonia type: due to unspecified organism Laterality: left Lung location: lower lobe of lung Qualified Code(s): J18.9 - Pneumonia, unspecified organism Is this a current diagnosis for this admission?: Yes Plan: 03/20/2020-patient admitted with left lower lobe pneumonia failed outpatient antibiotic therapy plan is to start her on IV Rocephin 1 g daily and Zithromax 5 mg IV daily. Blood cultures and urine cultures are requested. Placed on oxygen 2 L via nasal cannula. Most likely community-acquired pneumonia. 03/21/20-patient admitted with left lower lobe pneumonia presently on ceftriaxone and azithromycin. Blood pressure stable. Afebrile. Blood cultures are pending. (2) Hyponatremia Is this a current diagnosis for this admission?: Yes Plan: 03/20/2020-serum sodium is 129.6. Hyponatremia most likely secondary to poor oral intake and nausea. Started on normal saline at 75 cc/h. 03/21/2020-serum sodium is 130.8. Improved from yesterday. Plan is to continue IV fluids at this time. Hyponatremia most likely secondary to poor oral intake. (3) Nausea Is this a current diagnosis for this admission?: Yes Plan: 03/20/2020-patient came with persistent nausea start Zofran 4 mg IV every 6 as needed and nausea may be contributing factor for hyponatremia. 09/21/2019-nausea is resolving patient appetite is improving. (4) Hypertension Is this a current diagnosis for this admission?: No Plan: 03/20/2020-patient has history of hypertension chronic essential hypertension,, blood pressure is 163/82. Plan is to restart losartan and metoprolol patient taking at home. 03/21/2020-blood pressure today's 149/66. To continue losartan and metoprolol at this time. (5) Atrial fibrillation Is this a current diagnosis for this admission?: No Plan: 09/20/2019-patient has history of chronic persistent atrial fibrillation taking X arelto and metoprolol at home. Heart rate is relatively controlled at this time. Plan is to continue Xarelto metoprolol during the hospital stay. 03/21/2020-heart rate this morning 80s. Plan is to continue Xarelto, metoprolol 50 mg p.o. every 12 hours. - Time Anticipated Discharge Disposition: Home, Self Care Anticipated Discharge Timeframe: within 48 hours
[2020-03-21] MEDS ORDERED: LOSARTAN POTASSIUM 25 MG TABLET PO SCH (10:00)
[2020-03-21] MEDS ORDERED: AZITHROMYCIN INJ 500 MG VIAL IV SCH (10:00)
[2020-03-21] MEDS: CEFTRIAXONE 1 GM/D5W RTU 1 GM/50 ML RTUPB IV SCH (11:08)
[2020-03-21] MEDS: AZITHROMYCIN 500 MG in DEXTROSE 5%-WATER 250 ML IV SCH (17:15)
[2020-03-21] MEDS: RIVAROXABAN 10 MG TABLET PO SCH (17:15)
[2020-03-21] MEDS: MELATONIN 3 MG TABLET PO SCH (21:10)
[2020-03-21] MEDS: ZOLPIDEM TARTRATE 5 MG TABLET PO SCH (21:13)
[2020-03-22] MEDS: NORMAL SALINE 1000 ML 1,000 ML IV PRN ×2 (01:48→21:54)
[2020-03-22] MEDS: PANTOPRAZOLE SODIUM 40 MG TABLET.DR PO SCH (05:00)
[2020-03-22 05:54] LABS: ABSOLUTE EOSINOPHILS # (AUTO) 0.4 10^3/uL (0.0-0.6); ABSOLUTE LYMPHOCYTES (AUTO) 0.8 10^3/uL (0.5-4.7); ABSOLUTE MONOCYTES (AUTO) 0.7 10^3/uL (0.1-1.4); ABSOLUTE NEUT (AUTO) 3.1 10^3/uL (1.7-8.2); EOSINOPHILS % (AUTO) 8.8 % (0-6); HEMATOCRIT 29.8 % (36.0-47.0); HEMOGLOBIN 9.8 g/dL (12.0-15.5); LYMPHOCYTES % (AUTO) 15.4 % (13-45); MEAN CORPUSCULAR HEMOGLOBIN 27.1 pg (27.0-33.4); MEAN CORPUSCULAR HGB CONC 32.9 g/dL (32.0-36.0); MEAN CORPUSCULAR VOLUME 83 fl (80-97); PLATELET COUNT 331 10^3/uL (150-450); RED BLOOD COUNT 3.61 10^6/uL (3.72-5.28); RED CELL DISTRIBUTION WIDTH 17.9 % (11.5-14.0); SEGMENTED NEUTROPHILS % (AUTO) 61.8 % (42-78); TOTAL CELLS COUNTED % (AUTO) 100 %; WHITE BLOOD COUNT 5.1 10^3/uL (4.0-10.5)
--- NOTE | 2020-03-22 09:57 | PDOC PROGRESS REPORT ---
Subjective Progress Note for:: 03/22/20 Subjective:: 84 year old female With history of A. fib on Xarelto at home, hypertension on losartan came to the emergency room for the third time with complaining of not feeling well nauseated and queasiness in the stomach. She registered primary care physician 3 times. Initial visit shows left lower lobe pneumonia patient was given levofloxacin and patient is unable to tolerate levofloxacin at home. Came today with complaints of nausea and not feeling well unsteady gait. Work-up in the ER indicates serum sodium of 129.6 may be secondary to nausea and chest x-ray shows improvement in the left lower lobe pneumonia. Patient CODE STATUS is DNR/DNI. 03/21/[id number]-wnpu-old female admitted for left lower lobe pneumonia with failed outpatient antibiotic therapy. CT scan of the chest shows improvement in the left lower lobe pneumonia. Afebrile. WBC count within normal limits. No acute events in the last 24 hours. 03/22/[id number]-cpik-old female admitted with left lower lobe pneumonia with failed outpatient antibiotic therapy. Blood cultures are negative. Pulse ox is 98% on room air. Plan is to continue IV ceftriaxone and Zithromax at this time. Reason For Visit: LEFT LOWER LOBE PNEUMONIA Physical Exam Vital Signs: Temp Pulse Resp BP Pulse Ox 97.6 F 56 L 18 144/62 H 93 03/22/20 07:25 03/22/20 07:25 03/22/20 07:25 03/22/20 07:25 03/22/20 07:25 Intake & Output 03/21/20 03/22/20 03/23/20 06:59 06:59 06:59 Intake Total 1820 1970 Output Total 100 100 Balance 1720 1870 Weight 60.4 kg 61.9 kg 61.9 kg General appearance: PRESENT: no acute distress, cooperative, well-developed Head exam: PRESENT: atraumatic Eye exam: PRESENT: PERRLA Ear exam: PRESENT: normal external ear exam Mouth exam: PRESENT: neck supple Teeth exam: PRESENT: poor dentation Neck exam: ABSENT: carotid bruit, JVD, lymphadenopathy, thyromegaly Respiratory exam: PRESENT: decreased breath sounds Cardiovascular exam: PRESENT: irregular rhythm, tachycardia. ABSENT: diastolic murmur, rubs, systolic murmur GI/Abdominal exam: PRESENT: normal bowel sounds, soft. ABSENT: distended, guarding, mass, organolmegaly, rebound, tenderness Rectal exam: PRESENT: deferred Extremities exam: PRESENT: full ROM. ABSENT: calf tenderness, clubbing, pedal edema Neurological exam: PRESENT: alert, awake, oriented to person, oriented to place, oriented to time, oriented to situation, CN II-XII grossly intact. ABSENT: motor sensory deficit Psychiatric exam: PRESENT: appropriate affect, normal mood. ABSENT: homicidal ideation, suicidal ideation Results Laboratory Results: 03/22/20 05:10 03/21/20 08:28 03/22/20 05:10 WBC 5.1 RBC 3.61 L Hgb 9.8 L Hct 29.8 L MCV 83 MCH 27.1 MCHC 32.9 RDW 17.9 H Plt Count 331 Seg Neutrophils % 61.8 03/20/20 03/20/20 03/20/20 07:50 11:55 17:48 Troponin I < 0.012 0.014 0.015 NT-Pro-B Natriuret Pep 2700 H 03/20/20 03/21/20 23:33 04:24 Troponin I < 0.012 NT-Pro-B Natriuret Pep 2420 H Impressions: Chest CT 03/20/20 00:00 IMPRESSION: Improving pneumonia. Chest X-Ray 03/20/20 08:30 IMPRESSION: Improving left lower lobe pneumonia. Assessment and Plan - Diagnosis (1) Pneumonia Qualifiers: Pneumonia type: due to unspecified organism Laterality: left Lung location: lower lobe of lung Qualified Code(s): J18.9 - Pneumonia, unspecified organism Is this a current diagnosis for this admission?: Yes Plan: 03/20/2020-patient admitted with left lower lobe pneumonia failed outpatient antibiotic therapy plan is to start her on IV Rocephin 1 g daily and Zithromax 5 mg IV daily. Blood cultures and urine cultures are requested. Placed on oxygen 2 L via nasal cannula. Most likely community-acquired pneumonia. 03/21/20-patient admitted with left lower lobe pneumonia presently on ceftriaxone and azithromycin. Blood pressure stable. Afebrile. Blood cultures are pending. 03/22/20-patient is afebrile blood cultures are negative on ceftriaxone, azithromycin for left lower lobe pneumonia. (2) Hyponatremia Is this a current diagnosis for this admission?: Yes Plan: 03/20/2020-serum sodium is 129.6. Hyponatremia most likely secondary to poor oral intake and nausea. Started on normal saline at 75 cc/h. 03/21/2020-serum sodium is 130.8. Improved from yesterday. Plan is to continue IV fluids at this time. Hyponatremia most likely secondary to poor oral intake. 03/22/2020-serum sodium is 131. Hyponatremia is resolving. (3) Nausea Is this a current diagnosis for this admission?: Yes Plan: 03/20/2020-patient came with persistent nausea start Zofran 4 mg IV every 6 as needed and nausea may be contributing factor for hyponatremia. 09/21/2019-nausea is resolving patient appetite is improving. (4) Hypertension Is this a current diagnosis for this admission?: No Plan: 03/20/2020-patient has history of hypertension chronic essential hypertension,, blood pressure is 163/82. Plan is to restart losartan and metoprolol patient taking at home. 03/21/2020-blood pressure today's 149/66. To continue losartan and metoprolol at this time. 03/22/2020-blood pressure today is 130/60. Stable. (5) Atrial fibrillation Is this a current diagnosis for this admission?: No Plan: 09/20/2019-patient has history of chronic persistent atrial fibrillation taking Xarelto and metoprolol at home. Heart rate is relatively controlled at this time. Plan is to continue Xarelto metoprolol during the hospital stay. 03/21/2020-heart rate this morning 80s. Plan is to continue Xarelto, metoprolol 50 mg p.o. every 12 hours. - Time Anticipated Discharge Disposition: Home, Self Care Anticipated Discharge Timeframe: within 48 hours
[2020-03-22] MEDS: METOPROLOL TARTRATE 50 MG TABLET PO SCH ×2 (10:14→21:50)
[2020-03-22] MEDS: ASPIRIN 81 MG TABLET, ENT COATED PO SCH (10:14)
[2020-03-22] MEDS: LOSARTAN POTASSIUM 50 MG TABLET PO SCH ×2 (10:14→21:50)
[2020-03-22] MEDS: CEFTRIAXONE 1 GM/D5W RTU 1 GM/50 ML RTUPB IV SCH (12:16)
[2020-03-22] MEDS: RIVAROXABAN 10 MG TABLET PO SCH (17:41)
[2020-03-22] MEDS: AZITHROMYCIN 500 MG in DEXTROSE 5%-WATER 250 ML IV SCH (17:42)
[2020-03-22] MEDS: ZOLPIDEM TARTRATE 5 MG TABLET PO SCH (21:50)
[2020-03-22] MEDS: MELATONIN 3 MG TABLET PO SCH (21:50)
[2020-03-23] MEDS: PANTOPRAZOLE SODIUM 40 MG TABLET.DR PO SCH (05:31)
[2020-03-23] MEDS: METOPROLOL TARTRATE 50 MG TABLET PO SCH (11:24)
[2020-03-23] MEDS: LOSARTAN POTASSIUM 50 MG TABLET PO SCH (11:24)
[2020-03-23] MEDS: ASPIRIN 81 MG TABLET, ENT COATED PO SCH (11:25)
--- NOTE | 2020-03-23 11:44 | PDOC DISCHARGE SUMMARY ---
Impression - Admit/DC Date/PCP Admission Date/Primary Care Provider: 03/20/20 11:11 ELLA PAGAN Discharge Date: 03/23/20 - Discharge Diagnosis (1) Pneumonia Is this a current diagnosis for this admission?: Yes (2) Hyponatremia Is this a current diagnosis for this admission?: Yes (3) Nausea Is this a current diagnosis for this admission?: Yes (4) Hypertension Is this a current diagnosis for this admission?: No (5) Atrial fibrillation Is this a current diagnosis for this admission?: No - Assessment Summary: (1) Pneumonia Qualifiers: Pneumonia type: due to unspecified organism Laterality: left Lung location: lower lobe of lung Qualified Code(s): J18.9 - Pneumonia, unspecified organism Is this a current diagnosis for this admission?: Yes Plan: 03/20/2020-patient admitted with left lower lobe pneumonia failed outpatient antibiotic therapy plan is to start her on IV Rocephin 1 g daily and Zithromax 5 mg IV daily. Blood cultures and urine cultures are requested. Placed on oxygen 2 L via nasal cannula. Most likely community-acquired pneumonia. 03/21/20-patient admitted with left lower lobe pneumonia presently on ceftriaxone and azithromycin. Blood pressure stable. Afebrile. Blood cultures are pending. 03/22/20-patient is afebrile blood cultures are negative on ceftriaxone, azithromycin for left lower lobe pneumonia. 3020-blood cultures are negative, pulse ox is improving, blood pressure stable, WBC within normal limits plan is to discharge her home on doxycycline 100 mg p.o. twice daily for 1 week. (2) Hyponatremia Is this a current diagnosis for this admission?: Yes Plan: 03/20/2020-serum sodium is 129.6. Hyponatremia most likely secondary to poor oral intake and nausea. Started on normal saline at 75 cc/h. 03/21/2020-serum sodium is 130.8. Improved from yesterday. Plan is to continue IV fluids at this time. Hyponatremia most likely secondary to poor oral intake. 03/22/2020-serum sodium is 131. Hyponatremia is resolving. 03/23/2020-patient has a chronic hyponatremia asymptomatic alert awake oriented communicating well. (3) Nausea Is this a current diagnosis for this admission?: Yes Plan: 03/20/2020-patient came with persistent nausea start Zofran 4 mg IV every 6 as needed and nausea may be contributing factor for hyponatremia. 03/21/2020-nausea is resolving patient appetite is improving. 03/23/2020-patient came in with complaints of nausea which was resolved. (4) Hypertension Is this a current diagnosis for this admission?: No Plan: 03/20/2020-patient has history of hypertension chronic essential hypertension,, blood pressure is 163/82. Plan is to restart losartan and metoprolol patient taking at home. 03/21/2020-blood pressure today's 149/66. To continue losartan and metoprolol at this time. 03/22/2020-blood pressure today is 130/60. Stable. (5) Atrial fibrillation Is this a current diagnosis for this admission?: No Plan: 09/20/2019-patient has history of chronic persistent atrial fibrillation taking Xarelto and metoprolol at home. Heart rate is relatively controlled at this time. Plan is to continue Xarelto metoprolol during the hospital stay. 03/21/2020-heart rate this morning 80s. Plan is to continue Xarelto, metoprolol 50 mg p.o. every 12 hours. 03/23/2020-heart rate today is 60. Rate controlled rhythm. Patient is advised to continue metoprolol and Xarelto at home. - Additional Information Resuscitation Status: Do Not Resuscitate Discharge Diet: Cardiac Discharge Activity: Activity As Tolerated Referrals: AFSANEH SANCHES FNP-C [Primary Care Provider] - Follow up as needed Prescriptions: Pantoprazole Sodium [Protonix [address] Tablet] 40 mg PO Q6AM 30 Days #30 tablet. Doxycycline Hyclate [Vibramycin 100 mg Tablet] 100 mg PO Q12 7 Days #14 tablet Home Medications: Aspirin [Adult Low Dose Aspirin EC] 81 mg PO DAILY 12/30/18 Metoprolol Tartrate [Lopressor 50 mg Tablet] 50 mg PO Q12 30 Days #30 tablet 12/31/18 Losartan Potassium [Cozaar 25 mg Tablet] 50 mg PO BID 03/20/20 Rivaroxaban [Xarelto] 20 mg PO DAILY 03/20/20 Doxycycline Hyclate [Vibramycin 100 mg Tablet] 100 mg PO Q12 7 Days #14 tablet 03/23/20 Pantoprazole Sodium [Protonix [address] Tablet] 40 mg PO Q6AM 30 Days #30 tablet. 03/23/20 Rivaroxaban [Xarelto 10 mg Tablet] 20 mg PO WSUPPER tablet 03/23/20 History of Present Illiness History of Present Illness: FRANCIA BECK is a 84 year old female With history of A. fib on Xarelto at home, hypertension on losartan came to the emergency room for the third time with complaining of not feeling well nauseated and queasiness in the stomach. She registered primary care physician 3 times. Initial visit shows left lower lobe pneumonia patient was given levofloxacin and patient is unable to tolerate levofloxacin at home. Came today with complaints of nausea and not feeling well unsteady gait. Work-up in the ER indicates serum sodium of 129.6 may be secondary to nausea and chest x-ray shows improvement in the left lower lobe pneumonia. Patient CODE STATUS is DNR/DNI. Hospital Course Hospital Course: 84 year old female With history of A. fib on Xarelto at home, hypertension on losartan came to the emergency room for the third time with complaining of not feeling well nauseated and queasiness in the stomach. She registered primary care physician 3 times. Initial visit shows left lower lobe pneumonia patient was given levofloxacin and patient is unable to tolerate levofloxacin at home. Came today with complaints of nausea and not feeling well unsteady gait. Work-up in the ER indicates serum sodium of 129.6 may be secondary to nausea and chest x-ray shows improvement in the left lower lobe pneumonia. Patient CODE STATUS is DNR/DNI. 03/21/[id number]-ddio-old female admitted for left lower lobe pneumonia with failed outpatient antibiotic therapy. CT scan of the chest shows improvement in the left lower lobe pneumonia. Afebrile. WBC count within normal limits. No acute events in the last 24 hours. 03/22/[id number]-vjdm-old female admitted with left lower lobe pneumonia with failed outpatient antibiotic therapy. Blood cultures are negative. Pulse ox is 98% on room air. Plan is to continue IV ceftriaxone and Zithromax at this time. 03/23/2020-patient is comfortable in the chair communicating well. Not in distress. Afebrile. Blood pressures are stable. Pulse ox is 95% room air. Expressing desire to go home today. plan is to discharge her home on doxycycline 100 mg p.o. twice daily for 1 week. Physical Exam Vital Signs: Temp Pulse Resp BP Pulse Ox 98.1 F 67 17 135/64 H 94 03/23/20 10:00 03/23/20 07:37 03/23/20 07:37 03/23/20 07:37 03/23/20 07:37 Intake & Output 03/22/20 03/23/20 03/24/20 06:59 06:59 06:59 Intake Total 1970 2300 1000 Output Total 100 2 Balance 1870 2298 1000 Weight 61.9 kg 61.9 kg General appearance: PRESENT: no acute distress, cooperative Head exam: PRESENT: atraumatic Eye exam: PRESENT: PERRLA Mouth exam: PRESENT: moist, tongue midline Neck exam: ABSENT: carotid bruit, JVD, lymphadenopathy, thyromegaly Respiratory exam: PRESENT: decreased breath sounds Cardiovascular exam: PRESENT: RRR. ABSENT: diastolic murmur, rubs, systolic murmur GI/Abdominal exam: PRESENT: normal bowel sounds, soft. ABSENT: distended, guarding, mass, organolmegaly, rebound, tenderness Rectal exam: PRESENT: deferred Extremities exam: PRESENT: full ROM. ABSENT: calf tenderness, clubbing, pedal edema Neurological exam: PRESENT: alert, awake, oriented to person, oriented to place, oriented to time, oriented to situation, CN II-XII grossly intact. ABSENT: motor sensory deficit Psychiatric exam: PRESENT: appropriate affect, normal mood. ABSENT: homicidal ideation, suicidal ideation Results Laboratory Results: WBC 5.1 10^3/uL (4.0-10.5) 03/22/20 05:10 RBC 3.61 10^6/uL (3.72-5.28) L 03/22/20 05:10 Hgb 9.8 g/dL (12.0-15.5) L 03/22/20 05:10 Hct 29.8 % (36.0-47.0) L 03/22/20 05:10 MCV 83 fl (80-97) 03/22/20 05:10 MCH 27.1 pg (27.0-33.4) 03/22/20 05:10 MCHC 32.9 g/dL (32.0-36.0) 03/22/20 05:10 RDW 17.9 % (11.5-14.0) H 03/22/20 05:10 Plt Count 331 10^3/uL (150-450) 03/22/20 05:10 Lymph % (Auto) 15.4 % (13-45) 03/22/20 05:10 [place] % (Auto) 13.0 % (3-13) 03/22/20 05:10 Eos % (Auto) 8.8 % (0-6) H 03/22/20 05:10 Baso % (Auto) 1.0 % (0-2) 03/22/20 05:10 Absolute Neuts (auto) 3.1 10^3/uL (1.7-8.2) 03/22/20 05:10 Absolute Lymphs (auto) 0.8 10^3/uL (0.5-4.7) 03/22/20 05:10 Absolute Monos (auto) 0.7 10^3/uL (0.1-1.4) 03/22/20 05:10 Absolute Eos (auto) 0.4 10^3/uL (0.0-0.6) 03/22/20 05:10 Absolute Basos (auto) 0.0 10^3/uL (0.0-0.2) 03/22/20 05:10 Seg Neutrophils % 61.8 % (42-78) 03/22/20 05:10 Sodium 131.0 mmol/L (137-145) L 03/21/20 08:28 Potassium 3.3 mmol/L (3.6-5.0) L 03/21/20 08:28 Chloride 98 mmol/L (98-107) 03/21/20 08:28 Carbon Dioxide 26 mmol/L (22-30) 03/21/20 08:28 Anion Gap 7 (5-19) 03/21/20 08:28 BUN 12 mg/dL (7-20) 03/21/20 08:28 Creatinine 1.08 mg/dL (0.52-1.25) 03/21/20 08:28 Est GFR ( Amer) 58 (>60) L 03/21/20 08:28 Est GFR (MDRD) Non-Af 48 (>60) L 03/21/20 08:28 Glucose 118 mg/dL (75-110) H 03/21/20 08:28 Hemoglobin A1c % 5.2 % (4.7-6.0) 03/21/20 04:24 Calcium 8.3 mg/dL (8.4-10.2) L 03/21/20 08: Magnesium 1.8 mg/dL (1.6-2.3) 03/21/20 08:28 Total Bilirubin 0.5 mg/dL (0.2-1.3) 03/21/20 08: Direct Bilirubin 0.3 mg/dL (0.0-0.4) 03/21/20 08:28 Neonat Total Bilirubin Not Reportable 03/21/20 08:28 Neonat Direct Bilirubin Not Reportable 03/21/20 08:28 Neonat Indirect Bili Not Reportable 03/21/20 08:28 AST 17 U/L (14-36) 03/21/20 08:28 ALT 6 U/L (<35) 03/21/20 08:28 Alkaline Phosphatase 59 U/L (38-126) 03/21/20 08:28 Troponin I < 0.012 ng/mL 03/20/20 23:33 NT-Pro-B Natriuret Pep 2420 pg/mL (<450) H 03/21/20 04:24 Total Protein 5.9 g/dL (6.3-8.2) L 03/21/20 08:28 Albumin 3.0 g/dL (3.5-5.0) L 03/21/20 08:28 Triglycerides 83 mg/dL (<150) 03/21/20 04:24 Cholesterol 130.11 mg/dL (0-200) 03/21/20 04:24 LDL Cholesterol Direct 74 mg/dL (<100) 03/21/20 04:24 VLDL Cholesterol 17.0 mg/dL (10-31) 03/21/20 04:24 HDL Cholesterol 32 mg/dL (>40) L 03/21/20 04:24 Urine Color STRAW 03/21/20 07:00 Urine Appearance CLEAR 03/21/20 07:00 Urine pH 7.0 (5.0-9.0) 03/21/20 07:00 Ur Specific Zoe 1.006 03/21/20 07:00 Urine Protein NEGATIVE mg/dL (NEGATIVE) 03/21/20 07:00 Urine Glucose (UA) NEGATIVE mg/dL (NEGATIVE) 03/21/20 07:00 Urine Ketones NEGATIVE mg/dL (NEGATIVE) 03/21/20 07:00 Urine Blood NEGATIVE (NEGATIVE) 03/21/20 07:00 Urine Nitrite NEGATIVE (NEGATIVE) 03/21/20 07:00 Urine Nitrite (Reflex) NEGATIVE (NEGATIVE) 03/20/20 15:10 Urine Bilirubin NEGATIVE (NEGATIVE) 03/21/20 07:00 Urine Urobilinogen NEGATIVE mg/dL (<2.0) 03/21/20 07:00 Ur Leukocyte Esterase NEGATIVE (NEGATIVE) 03/21/20 07:00 Leukocyte Esterase Rfl NEGATIVE (NEGATIVE) 03/20/20 15:10 Urine RBC NONE SEEN /HPF 03/21/20 07:00 Urine WBC 1-5 /HPF 03/21/20 07:00 Ur Squamous Epith Cells FEW /HPF 03/21/20 07:00 Urine Bacteria TRACE /HPF 03/20/20 15:10 Urine Ascorbic Acid NEGATIVE (NEGATIVE) 03/21/20 07:00 03/20/20 03/20/20 03/20/20 07:50 11:55 17:48 Troponin I < 0.012 0.014 0.015 NT-Pro-B Natriuret Pep 2700 H 03/20/20 03/21/20 23:33 04:24 Troponin I < 0.012 NT-Pro-B Natriuret Pep 2420 H Impressions: Chest CT 03/20/20 00:00 IMPRESSION: Improving pneumonia. Chest X-Ray 03/20/20 08:30 IMPRESSION: Improving left lower lobe pneumonia. Plan Plan of Treatment: Patient is advised to be compliant with her medications and also advised to follow-up with PCP in 1 week time. Time Spent: Greater than 30 Minutes Stroke Is this a Stroke Patient?: No Acute Heart Failure - Is this a Heart Failure Patient?: No
[2020-03-23 11:53] VITALS: BP 127/64
[2020-03-23] MEDS ORDERED: DOXYCYCLINE HYCLATE 100 MG TABLET PO SCH (22:00)
== END 2020-03-23 12:30 | disposition home health service (06) | DRG 194 ==
LOC: ER 08:01 → EH 11:11 → 4N 13:29
PROVIDERS: ADMIT Internal Medicine; ATTEND Internal Medicine
DX: J18.9 Pneumonia, unspecified organism (principal); E87.1 Hypo-osmolality and hyponatremia; I48.19 Other persistent atrial fibrillation; I10 Essential (primary) hypertension; R11.0 Nausea; Z66 Do not resuscitate; Z60.2 Problems related to living alone; Z96.653 Presence of artificial knee joint, bilateral; Z79.01 Long term (current) use of anticoagulants; Z79.899 Other long term (current) drug therapy; Z79.82 Long term (current) use of aspirin; Z87.891 Personal history of nicotine dependence; Z82.49 Family history of ischemic heart disease and other diseases of the circulatory system
CPT/HCPCS: 36415; 71045; 71250; 80053; 80061; 81001; 83036; 83735; 83880; 84484; 85025; 87040; 87070; 87086; 93005; 93010; 99285; J0456; J0696; J3490; J7030; J7060